=== PATIENT | male | born 1975 | race Caucasian/White ===

== ENCOUNTER 2018-11-02 08:08 | Inpatient (IN) | payer OTHER ==
--- NOTE | 2018-11-02 10:20 | HP ---
"COWS - Scale Resting Pulse: 0= [place] 80 or Below Sweatin= Chills/Flushing Restless Observation: 3= Extraneous Movement Pupil Size: 0= Normal to Room Light Bone or Joint Aches: 4=Acute Joint/Muscle Pain Runny Nose/ Eye Tearin= Nasal Congestion GI Upset > 30mins: 0= None Tremor Observation: 0= None Yawning Observation: 0= None Anxiety or Irritability: 2=Irritable/Anxious Goose Flesh Skin: 0=Smooth Skin COWS Score: 11 CIWA Score - Admission Criteria OASAS Guidelines: Admission for Medically Managed Detox: Requires at least one of the followin. CIWA greater than 12 2. Seizures within the past 24 hours 3. Delirium tremens within the past 24 hours 4. Hallucinations within the past 24 hours 5. Acute intervention needed for co occurring medical disorder 6. Acute intervention needed for co occurring psychiatric disorder 7. Severe withdrawal that cannot be handled at a lower level of care (continued vomiting, continued diarrhea, abnormal vital signs) requiring intravenous medication and/or fluids 8. Admission ROS [facility] Allergies/Adverse Reactions: Allergies Allergy/AdvReac Type Severity Reaction Status Date / Time shellfish derived Allergy Severe Difficulty Verified 11/02/18 08:35 Breathing No Known Drug Allergies Allergy Unknown Verified 11/02/18 08:35 History of Present Illness: Search Terms: maria fernanda mcgee, 1975 Search Date: 11/02/2018 10:15:40 AM The Drug Utilization Report below displays all of the controlled substance prescriptions, if any, that your patient has filled in the last twelve months. The information displayed on this report is compiled from pharmacy submissions to the Department, and accurately reflects the information as submitted by the pharmacies. This report was requested by: Phylicia Johnson | Reference #: [id number] There are no results for the search terms that you entered. pt here requesting detox from heroin use , reports 10-12 bags heroin IVDU in [place] [facility] , needles from the exchange , denies sharing , + re-using , denies abscess, + OD x 2-3 Narcan by EMS 3 years ago . Denies recent hospital visits. Latest use 4 am today , current symptoms as above . Prior [facility] [place], highest dose 130 mg , left program 2/2 ongoing opiate use cocaine - past IVDU latest use 2 days ago etoh - 2 days ago , 4 x /week 2 pints vodka, reports anxiety if not drinking . cannabis- denies tobacco - / ppd denies other illicits PMHX : hep C dx 2012 no tx ( RF= IVDU ) PSHx : nose frx 1984 psych: denies , denies current Si / hi SHX : lives w/ GF , unemployed , finances habit through odd jobs . Exam Limitations: No Limitations - Ebola screening Have you traveled outside of the country in the last 21 days: No Have you had contact with anyone from an Ebola affected area: No Do you have a fever: No - Review of Systems Constitutional: See HPI EENT: reports: See HPI, Other (denies vision loss, denies dysphagia) Respiratory: reports: No Symptoms reported Cardiac: reports: No Symptoms Reported GI: reports: See HPI : reports: No Symptoms Reported Musculoskeletal: reports: See HPI Integumentary: reports: See HPI Neuro: reports: No Symptoms reported Endocrine: reports: No Symptoms Reported Psychiatric: reports: Orientated x3, Anxious Patient History - Patient Medical History Hx Anemia: No Hx Asthma: No Hx Chronic Obstructive Pulmonary Disease (COPD): No Hx Cancer: No Hx Cardiac Disorders: No Hx Congestive Heart Failure: No Hx Hypertension: No Hx Hypercholesterolemia: No Hx Pacemaker: No HX Cerebrovascular Accident: No Hx Seizures: No Hx Dementia: No Hx Diabetes: No Hx Gastrointestinal Disorders: No Hx Liver Disease: No Hx Genitourinary Disorders: No Hx Sexually Transmitted Disorders: No Hx Renal Disease (ESRD): No Hx Thyroid Disease: No Hx Human Immunodeficiency Virus (HIV): No Hx Hepatitis C: Yes (diagnosed 2011,NEEDS TREATMENT) Hx Depression: Yes Hx Suicide Attempt: No Hx Bipolar Disorder: Yes Hx Schizophrenia: No - Patient Surgical History Past Surgical History: Yes Hx Neurologic Surgery: No Hx Cataract Extraction: No Hx Cardiac Surgery: No Hx Lung Surgery: No Hx Breast Surgery: No Hx Breast Biopsy: No Hx Abdominal Surgery: No Hx Appendectomy: No Hx Cholecystectomy: No Hx Genitourinary Surgery: No Hx Section: No Hx Orthopedic Surgery: No Hx Hysterectomy: No Other Surgical History: fx, nose at age 10 Anesthesia Reaction: No - PPD History Previous Implant?: Yes Documented Results: Negative w/o proof Implanted On Prior R Admission?: Yes Date: 08/03/15 Results: 0mm - Smoking Cessation Smoking history: Current every day smoker Have you smoked in the past 12 months: Yes Aproximately how many cigarettes per day: 5 Hx Chewing Tobacco Use: No Initiated information on smoking cessation: No - Substances abused Alcohol Substance route: Oral Frequency: 3-6 times per week Amount used: 2 pt. vodka, 1 six beer (16 0z) Age of first use: 12 Date of last use: 10/31/18 Cocaine Substance route: Injection Frequency: 3-6 times per week Amount used: 1 gram Age of first use: 21 Date of last use: 10/31/18 Heroin Substance route: Inhalation Frequency: Daily Amount used: 12 bags Age of first use: 17 Date of last use: 11/02/18 Family Disease History - Family Disease History Family Disease History: Diabetes: Grandparent, Other: Father (d. 50 , murdered @ client age 12 ), Mother (alive), Son (2, A & W ) Admission Physical Exam S - Vital Signs Vital Signs: Vital Signs - 24 hr 11/02/18 08:36 Temperature 97.1 F L Pulse Rate 62 Respiratory 18 Rate Blood Pressure 74/45 L - Physical General Appearance: Yes: Mild Distress, Anxious HEENTM: Yes: EOMI, Hearing grossly Normal, Normocephalic, Normal Voice Respiratory: Yes: Chest Non-Tender, Lungs Clear, Normal Breath Sounds Neck: Yes: No masses,lesions,Nodules, Trachea in good position Cardiology: Yes: Regular Rhythm, Regular Rate, S1, S2 Abdominal: Yes: Normal Bowel Sounds, Non Tender, Soft Genitourinary: Yes: Within Normal Limits Back: Yes: Normal Inspection Musculoskeletal: Yes: Gait Steady Extremities: Yes: Normal Range of Motion Neurological: Yes: Alert, Motor Strength 5/5 Integumentary: Yes: Warm - Diagnostic (1) Opioid dependence with withdrawal Current Visit: Yes Status: Acute (2) Nicotine dependence Current Visit: Yes Status: Chronic Qualifiers: Nicotine product type: cigarettes Substance use status: uncomplicated Qualified Code(s): F17.210 - Nicotine dependence, cigarettes, uncomplicated Breathalyzer - Breathalyzer Breathalyzer: 0 Urine Drug Screen - Test Device Lot number: [id number] Expiration date: 06/30/20 - Control Is test valid?: Yes - Results Drug screen NEGATIVE: No Urine drug screen results: FEN-Fentanyl, MOP-Opiates Inpatient Rehab Admission - Rehab Decision to Admit Inpatient rehab admission?: No"
[2018-11-02] MEDS ORDERED: MAGNESIUM HYDROX 2400MG/30ML ORAL SUSPENSION 30 ML CUP PO PRN (10:25)
[2018-11-02] MEDS ORDERED: MAG HYDROX/AL HYDROX/SIMETH 30 ML UNIT-DOSE CUP PO PRN (10:25)
[2018-11-02] MEDS ORDERED: IBUPROFEN 400 MG TABLET (FP) PO PRN (10:25)
[2018-11-02] MEDS ORDERED: MENTHOL/PHENOL 1 EACH UD MM PRN (10:25)
[2018-11-02] MEDS ORDERED: BISMUTH SUBSALICYLATE 262 MG/15 ML BTL PO PRN (10:25)
[2018-11-02] MEDS ORDERED: ACETAMINOPHEN 325 MG TABLET (FP) PO PRN ×2 (10:25)
[2018-11-02] MEDS ORDERED: cloNIDine HCL 0.1 MG TABLET PO PRN (10:25)
[2018-11-02] MEDS ORDERED: MAGNESIUM CITRATE 300 ML BOTTLE PO PRN (10:25)
[2018-11-02] MEDS ORDERED: NICOTINE POLACRILEX 2 MG GUM BUC PRN (10:25)
[2018-11-02] MEDS ORDERED: METHADONE HCL 10 MG TABLET (FOR DETOX USE ONLY) PO ONE (10:50)
[2018-11-02] MEDS: METHOCARBAMOL 500 MG TABLET PO PRN (20:40)
[2018-11-02] MEDS: THIAMINE HCL 100 MG TABLET (FP) PO SCH (23:40)
[2018-11-03] MEDS ORDERED: METHADONE HCL 5 MG TABLET (FOR DETOX USE ONLY) PO ONE (10:00)
[2018-11-03] MEDS: hydrOXYzine PAMOATE 25 MG CAPSULE (FP) PO PRN ×2 (10:06→22:03)
[2018-11-03] MEDS: PRENATAL VITAMINS W/ FOLIC ACID TABLET (FP) PO SCH (10:06)
[2018-11-03 10:23] LABS: HEMATOCRIT 40.1 % (35.4-49); HEMOGLOBIN 13.4 GM/dL (11.7-16.9); MCH 32.3 pg (25.7-33.7); MCHC 33.6 g/dl (32.0-35.9); MEAN CELL VOLUME 96.4 fl (80-96); MEAN PLT VOLUME 10.4 fl (7.5-11.1); PLATELET COUNT 116 K/MM3 (134-434); RBC 4.16 M/mm3 (4.00-5.60); WHITE BLOOD COUNT 5.4 K/mm3 (4.0-10.0)
[2018-11-03 10:34] LABS: ALBUMIN 3.5 g/dl (3.4-5.0); ALK PHOS 53 U/L (45-117); ANION GAP 3 MMOL/L (8-16); BILIRUBIN,TOTAL 0.9 mg/dL (0.2-1); BLOOD UREA NITROGEN 14 mg/dL (7-18); CALCIUM 8.4 mg/dL (8.5-10.1); CHLORIDE 102 mmol/L (98-107); CO2 29 mmol/L (21-32); CREATININE 0.8 mg/dL (0.55-1.3); GLUCOSE,RANDOM 93 mg/dL (74-106); POTASSIUM 4.3 mmol/L (3.5-5.1); SGOT/AST 44 U/L (15-37); SGPT/ALT 49 U/L (13-61); SODIUM 134 mmol/L (136-145); TOT PROT 6.8 g/dl (6.4-8.2)
--- NOTE | 2018-11-03 16:29 | PN ---
BHS COWS - Scale Resting Pulse: 0= [place] 80 or Below Sweatin= Chills/Flushing Restless Observation: 1= Difficult to Sit Still Pupil Size: 0= Normal to Room Light Bone or Joint Aches: 0= None Runny Nose/ Eye Tearin= Runny Nose/Eyes GI Upset > 30mins: 0= None Tremor Observation of Outstretched Hands: 2= Slight Tremor Visible Yawning Observation: 1= 1-2x During Session Anxiety or Irritability: 2=Irritable/Anxious Goose Flesh Skin: 3=Piloerection COWS Score: 12 BHS Progress Note (SOAP) Subjective: Interrupted Sleep, Fatigue, Tremors. Objective: PATIENT A & O X 3, OBSERVED AMBULATING ON UNIT. IN NO ACUTE DISTRESS. 11/03/18 16:30 Vital Signs Temperature 97.7 F 11/03/18 14:18 Pulse Rate 62 11/03/18 14:18 Respiratory Rate 18 11/03/18 14:18 Blood Pressure 117/66 11/03/18 14:18 O2 Sat by Pulse Oximetry (%) Laboratory Tests 11/03/18 11/03/18 11/03/18 07:00 07:00 07:00 WBC 5.4 RBC 4.16 Hgb 13.4 Hct 40.1 MCV 96.4 H MCH 32.3 MCHC 33.6 RDW 13.0 Plt Count 116 L D MPV 10.4 Sodium 134 L Potassium 4.3 Chloride 102 Carbon Dioxide 29 Anion Gap 3 L BUN 14 Creatinine 0.8 Creat Clearance w eGFR 105.01 Random Glucose 93 Calcium 8.4 L Total Bilirubin 0.9 AST 44 H ALT 49 Alkaline Phosphatase 53 Total Protein 6.8 Albumin 3.5 RPR Titer Nonreactive LABS NOTED. Assessment: 11/03/18 16:31 WITHDRAWAL SYMPTOMS. THROMBOCYTOPENIA. 11/03/18 16:31 Plan: CONTINUE DETOX.
[2018-11-03] MEDS: MELATONIN 5 MG TABLETS PO PRN (22:03)
[2018-11-03] MEDS: THIAMINE HCL 100 MG TABLET (FP) PO SCH (22:03)
[2018-11-03] MEDS: METHOCARBAMOL 500 MG TABLET PO PRN (22:03)
[2018-11-04] MEDS ORDERED: METHADONE HCL 10 MG TABLET (FOR DETOX USE ONLY) PO ONE (10:00)
[2018-11-04] MEDS: PRENATAL VITAMINS W/ FOLIC ACID TABLET (FP) PO SCH (10:20)
--- NOTE | 2018-11-04 15:20 | PN ---
BHS COWS - Scale Resting Pulse: 0= [place] 80 or Below Sweatin= No chills or Flushing Restless Observation: 0= Sits Still Pupil Size: 0= Normal to Room Light Bone or Joint Aches: 0= None Runny Nose/ Eye Tearin= Nasal Congestion GI Upset > 30mins: 0= None Tremor Observation of Outstretched Hands: 2= Slight Tremor Visible Yawning Observation: 2= >3x During Session Anxiety or Irritability: 2=Irritable/Anxious Goose Flesh Skin: 3=Piloerection COWS Score: 10 BHS Progress Note (SOAP) Subjective: Interrupted Sleep, Fatigue, Tremors. Objective: PATIENT A & O X 3, OBSERVED AMBULATING ON UNIT. IN NO ACUTE DISTRESS. 11/04/18 15:17 Vital Signs Temperature 97.4 F L 11/04/18 13:29 Pulse Rate 66 11/04/18 13:29 Respiratory Rate 18 11/04/18 13:29 Blood Pressure 128/75 11/04/18 13:29 O2 Sat by Pulse Oximetry (%) Laboratory Tests 11/03/18 11/03/18 11/03/18 07:00 07:00 07:00 WBC 5.4 RBC 4.16 Hgb 13.4 Hct 40.1 MCV 96.4 H MCH 32.3 MCHC 33.6 RDW 13.0 Plt Count 116 L D MPV 10.4 Sodium 134 L Potassium 4.3 Chloride 102 Carbon Dioxide 29 Anion Gap 3 L BUN 14 Creatinine 0.8 Creat Clearance w eGFR 105.01 Random Glucose 93 Calcium 8.4 L Total Bilirubin 0.9 AST 44 H ALT 49 Alkaline Phosphatase 53 Total Protein 6.8 Albumin 3.5 RPR Titer Nonreactive LABS NOTED. Assessment: 11/04/18 15:17 WITHDRAWAL SYMPTOMS. THROMBOCYTOPENIA. 11/04/18 15:20 Plan: CONTINUE DETOX. DUE TO CONCERNS ABOUT PATIENT SAFETY AND POTENTIAL FOR RELAPSE, PATIENT PERMITTED TO REMAIN ON DETOX UNIT UNTIL 11/06/2018, AT WHICH TIME HE WILL LIKELY BE DISCHARGED TO GO DIRECTLY TO REHAB FACILITY.
[2018-11-04] MEDS: hydrOXYzine PAMOATE 25 MG CAPSULE (FP) PO PRN (22:15)
[2018-11-04] MEDS: MELATONIN 5 MG TABLETS PO PRN (22:15)
[2018-11-04] MEDS: METHOCARBAMOL 500 MG TABLET PO PRN (22:17)
[2018-11-04] MEDS: THIAMINE HCL 100 MG TABLET (FP) PO SCH (22:19)
[2018-11-05] MEDS ORDERED: METHADONE HCL 5 MG TABLET (FOR DETOX USE ONLY) PO ONE (06:00)
[2018-11-05] MEDS: PRENATAL VITAMINS W/ FOLIC ACID TABLET (FP) PO SCH (10:23)
--- NOTE | 2018-11-05 11:20 | DS ---
[facility] Detox Discharge Summary Admission Date: 11/02/18 Discharge Date: 11/05/18 - History Present History: Opioid Dependence Additional Comments: 43 years old male admitted on 11/02/18 for opiate withdrawal stabilization [facility] - Physical Exam Results Vital Signs: Vital Signs Temperature 98.1 F 11/05/18 09:50 Pulse Rate 52 L 11/05/18 09:50 Respiratory Rate 18 11/05/18 09:50 Blood Pressure 121/65 11/05/18 09:50 O2 Sat by Pulse Oximetry (%) Pertinent Admission Physical Exam Findings: opiate withdrawal sx Laboratory Last Values WBC 5.4 K/mm3 (4.0-10.0) 11/03/18 07:00 RBC 4.16 M/mm3 (4.00-5.60) 11/03/18 07:00 Hgb 13.4 GM/dL (11.7-16.9) 11/03/18 07:00 Hct 40.1 % (35.4-49) 11/03/18 07:00 MCV 96.4 fl (80-96) H 11/03/18 07:00 MCH 32.3 pg (25.7-33.7) 11/03/18 07:00 MCHC 33.6 g/dl (32.0-35.9) 11/03/18 07:00 RDW 13.0 % (11.9-15.9) 11/03/18 07:00 Plt Count 116 K/MM3 (134-434) L D 11/03/18 07:00 MPV 10.4 fl (7.5-11.1) 11/03/18 07:00 Sodium 134 mmol/L (136-145) L 11/03/18 07:00 Potassium 4.3 mmol/L (3.5-5.1) 11/03/18 07:00 Chloride 102 mmol/L (98-107) 11/03/18 07:00 Carbon Dioxide 29 mmol/L (21-32) 11/03/18 07:00 Anion Gap 3 MMOL/L (8-16) L 11/03/18 07:00 BUN 14 mg/dL (7-18) 11/03/18 07:00 Creatinine 0.8 mg/dL (0.55-1.3) 11/03/18 07:00 Creat Clearance w eGFR 105.01 (>60) 11/03/18 07:00 Random Glucose 93 mg/dL (74-106) 11/03/18 07:00 Calcium 8.4 mg/dL (8.5-10.1) L 11/03/18 07:00 Total Bilirubin 0.9 mg/dL (0.2-1) 11/03/18 07:00 AST 44 U/L (15-37) H 11/03/18 07:00 ALT 49 U/L (13-61) 11/03/18 07:00 Alkaline Phosphatase 53 U/L (45-117) 11/03/18 07:00 Total Protein 6.8 g/dl (6.4-8.2) 11/03/18 07:00 Albumin 3.5 g/dl (3.4-5.0) 11/03/18 07:00 RPR Titer Nonreactive (NONREACTIVE) 11/03/18 07:00 lab noted - Treatment Hospital Course: Detox Protocol Followed, Detoxed Safely, Responded well, Discharged Condition Good, Rehab Referral Accepted Patient has Accepted a Rehab Referral to: [facility] - Medication Discharge Medications: Ambulatory Orders NK [No Known Home Medication] 08/01/15 - Diagnosis (1) Hepatitis C Current Visit: Yes Status: Chronic Qualifiers: Viral hepatitis chronicity: chronic Hepatic coma status: without hepatic coma Qualified Code(s): B18.2 - Chronic viral hepatitis C (2) Nicotine dependence Current Visit: Yes Status: Acute Qualifiers: Nicotine product type: cigarettes Substance use status: in withdrawal Qualified Code(s): F17.213 - Nicotine dependence, cigarettes, with withdrawal (3) Opioid dependence with withdrawal Current Visit: Yes Status: Acute - AMA Did Patient Leave Against Medical Advice: No
--- NOTE | 2018-11-05 14:07 | PN ---
[facility] Progress Note Note: received nurse reported that weekend counselor human resources department supervisor confirmed that the patient stay over one more day due to insurance granted one more day change discharge date to tomorrow 11/06/18
[2018-11-05 21:36] VITALS: PULSE 73
[2018-11-05] MEDS: MELATONIN 5 MG TABLETS PO PRN (22:02)
[2018-11-05] MEDS: hydrOXYzine PAMOATE 25 MG CAPSULE (FP) PO PRN (22:02)
[2018-11-05] MEDS: THIAMINE HCL 100 MG TABLET (FP) PO SCH (22:03)
[2018-11-05] MEDS: METHOCARBAMOL 500 MG TABLET PO PRN (22:04)
[2018-11-06 06:47] VITALS: BP 126/76; TEMP 97.1
--- NOTE | 2018-11-06 15:22 | DS ---
[facility] Detox Discharge Summary Admission Date: 11/02/18 Discharge Date: 11/06/18 - History Present History: Opioid Dependence Additional Comments: see discharge 11/05/18 Pertinent Past History: patient refuses to go to [facility] recommend 12 step community self help - Physical Exam Results Vital Signs: Vital Signs Temperature 97.1 F L 11/06/18 06:46 Pulse Rate 73 11/06/18 06:46 Respiratory Rate 20 11/06/18 06:46 Blood Pressure 126/76 11/06/18 06:46 O2 Sat by Pulse Oximetry (%) - Treatment Hospital Course: Detox Protocol Followed, Detoxed Safely, Responded well, Discharged Condition Good, Rehab Referral Accepted Patient has Accepted a Rehab Referral to: [facility] - Medication Discharge Medications: Ambulatory Orders NK [No Known Home Medication] 08/01/15 - Diagnosis (1) Hepatitis C Status: Chronic Qualifiers: Viral hepatitis chronicity: chronic Hepatic coma status: without hepatic coma Qualified Code(s): B18.2 - Chronic viral hepatitis C (2) Nicotine dependence Status: Acute Qualifiers: Nicotine product type: cigarettes Substance use status: in withdrawal Qualified Code(s): F17.213 - Nicotine dependence, cigarettes, with withdrawal (3) Opioid dependence with withdrawal Status: Acute - AMA Did Patient Leave Against Medical Advice: No
== END 2018-11-06 08:25 | disposition home or self-care (01) | DRG 773 ==
LOC: YASAS 08:08 → Y3N 10:31
PROVIDERS: ADMIT Surgery; ATTEND Surgery
PROC: HZ2ZZZZ Detoxification Services for Substance Abuse Treatment (ICD-10-PCS; principal; 2018-11-02)
DX: F11.23 Opioid dependence with withdrawal (principal); F17.213 Nicotine dependence, cigarettes, with withdrawal; B18.2 Chronic viral hepatitis C; D69.6 Thrombocytopenia, unspecified; Z91.013 Allergy to seafood
CPT/HCPCS: 36415; 80053; 85027; 86593

== ENCOUNTER 2018-12-08 16:22 | Inpatient (IN) | payer OTHER ==
[2018-12-08 18:08] VITALS: BMI 30.7
--- NOTE | 2018-12-08 19:14 | HP ---
COWS - Scale Resting Pulse: 0= [place] 80 or Below Sweatin= Chills/Flushing Restless Observation: 0= Sits Still Pupil Size: 0= Normal to Room Light Bone or Joint Aches: 4=Acute Joint/Muscle Pain Runny Nose/ Eye Tearin= Runny Nose/Eyes GI Upset > 30mins: 2= Nausea/Diarrhea Tremor Observation: 2= Slight Tremor Visible Yawning Observation: 0= None Anxiety or Irritability: 2=Irritable/Anxious Goose Flesh Skin: 0=Smooth Skin COWS Score: 13 CIWA Score Nausea/Vomitin-Mild Nausea/No Vomiting Muscle Tremors: 4-Moderate,w/Arms Extend Anxiety: 4-Mod. Anxious/Guarded Agitation: 0-Normal Activity Paroxysmal Sweats: 2 Orientation: 0-Oriented Tacttile Disturbances: 0-None Auditory Disturbances: 2-Mild Harshness/Frighten Visual Disturbances: 2-Mild Sensitivity Headache: 0-None Present CIWA-Ar Total Score: 15 - Admission Criteria OASAS Guidelines: Admission for Medically Managed Detox: Requires at least one of the followin. CIWA greater than 12 2. Seizures within the past 24 hours 3. Delirium tremens within the past 24 hours 4. Hallucinations within the past 24 hours 5. Acute intervention needed for co occurring medical disorder 6. Acute intervention needed for co occurring psychiatric disorder 7. Severe withdrawal that cannot be handled at a lower level of care (continued vomiting, continued diarrhea, abnormal vital signs) requiring intravenous medication and/or fluids 8. Admission ROS [facility] Allergies/Adverse Reactions: Allergies Allergy/AdvReac Type Severity Reaction Status Date / Time shellfish derived Allergy Severe Difficulty Verified 12/08/18 18:03 Breathing No Known Drug Allergies Allergy Unknown Verified 12/08/18 18:03 History of Present Illness: pt here requesting detox from heroin use , reports 15-20 bags heroin IVDU in [place] [facility] , needles from the exchange , denies sharing , + re-using , denies abscess, + OD x 2-3 Narcan by EMS 3 years ago. Denies recent hospital visits. Latest use around 4am today , current symptoms as above . Prior [facility]MTP [facility] [place], highest dose 130 mg , left program 2/2 ongoing opiate use cocaine - 20 $ IVDU latest use yesterday etoh -latest use was 3 days ago , 2-3 /week 2 pints vodka, reports anxiety if not drinking , denies seizures or blackouts , denies tremors . cannabis- denies tobacco - / ppd denies other illicits PMHX : hep C dx 2012 no tx ( RF= IVDU ) PSHx : nose frx 1984 psych: denies , denies current Si / hi SHX : lives w/ GF , unemployed , finances habit through odd jobs, denies legal issues Exam Limitations: Clinical Condition, Intoxication - Ebola screening Have you traveled outside of the country in the last 21 days: No (N) Have you had contact with anyone from an Ebola affected area: No Do you have a fever: No - Review of Systems Constitutional: See HPI EENT: reports: See HPI Respiratory: reports: No Symptoms reported Cardiac: reports: No Symptoms Reported GI: reports: See HPI : reports: No Symptoms Reported Musculoskeletal: reports: See HPI Integumentary: reports: No Symptoms Reported, Other (IVDU) Neuro: reports: See HPI, Headache Endocrine: reports: No Symptoms Reported Psychiatric: reports: Orientated x3, Anxious Patient History - Patient Medical History Hx Anemia: No Hx Asthma: No Hx Chronic Obstructive Pulmonary Disease (COPD): No Hx Cancer: No Hx Cardiac Disorders: No Hx Congestive Heart Failure: No Hx Hypertension: No Hx Hypercholesterolemia: No Hx Pacemaker: No HX Cerebrovascular Accident: No Hx Seizures: No Hx Dementia: No Hx Diabetes: No Hx Gastrointestinal Disorders: No Hx Liver Disease: No Hx Genitourinary Disorders: No Hx Sexually Transmitted Disorders: No Hx Renal Disease (ESRD): No Hx Thyroid Disease: No Hx Human Immunodeficiency Virus (HIV): No Hx Hepatitis C: Yes (diagnosed 2011,NEEDS TREATMENT) Hx Depression: Yes Hx Suicide Attempt: No Hx Bipolar Disorder: Yes Hx Schizophrenia: No - Patient Surgical History Past Surgical History: Yes Hx Neurologic Surgery: No Hx Cataract Extraction: No Hx Cardiac Surgery: No Hx Lung Surgery: No Hx Breast Surgery: No Hx Breast Biopsy: No Hx Abdominal Surgery: No Hx Appendectomy: No Hx Cholecystectomy: No Hx Genitourinary Surgery: No Hx Section: No Hx Orthopedic Surgery: No Hx Hysterectomy: No Other Surgical History: fx, nose at age 10 Anesthesia Reaction: No - PPD History Date: 11/04/18 Results: 0mm - Smoking Cessation Smoking history: Current every day smoker Have you smoked in the past 12 months: Yes Aproximately how many cigarettes per day: 5 Hx Chewing Tobacco Use: No Initiated information on smoking cessation: No - Substances abused Alcohol Substance route: Oral Frequency: 3-6 times per week Amount used: 2 pt. vodka, 1 six beer (16 0z) Age of first use: 12 Date of last use: 12/07/18 Cocaine Substance route: Injection Frequency: 3-6 times per week Amount used: 1 gram Age of first use: 21 Date of last use: 12/07/18 Heroin Substance route: Inhalation Frequency: Daily Amount used: 12 bags Age of first use: 17 Date of last use: 12/08/18 Family Disease History - Family Disease History Family Disease History: Diabetes: Grandparent, Other: Father (d. 50 , murdered @ client age 12 ), Mother (alive), Son (2, A & W ) Admission Physical Exam S - Vital Signs Vital Signs: Vital Signs - 24 hr 12/08/18 12/08/18 18:02 18:40 Temperature 98.4 F 98.4 F Pulse Rate 58 L 58 L Respiratory 18 18 Rate Blood Pressure 121/62 121/62 - Physical General Appearance: Yes: Moderate Distress HEENTM: Yes: EOMI, Normocephalic, Normal Voice Respiratory: Yes: Chest Non-Tender, Lungs Clear, Normal Breath Sounds, No Respiratory Distress, No Accessory Muscle Use Neck: Yes: No masses,lesions,Nodules, Trachea in good position Cardiology: Yes: Regular Rhythm, Regular Rate, S1, S2 Abdominal: Yes: Non Tender, Soft Back: Yes: Normal Inspection Musculoskeletal: Yes: Gait Steady, Muscle Pain Extremities: Yes: Normal Range of Motion, Non-Tender, Tremors, Pedal Edema Neurological: Yes: Motor Strength 5/5, Depressed Affect Integumentary: Yes: Warm, Erythema (LE L > R), Track [place] ([place] [facility] no abscess) - Diagnostic (1) Alcohol dependence with uncomplicated withdrawal Current Visit: Yes Status: Acute (2) Nicotine dependence Current Visit: Yes Status: Chronic Qualifiers: Nicotine product type: cigarettes (3) Opioid dependence with withdrawal Current Visit: Yes Status: Acute (4) Cocaine dependence Current Visit: Yes Status: Chronic Breathalyzer - Breathalyzer Breathalyzer: 0 Urine Drug Screen - Test Device Lot number: [id number] Expiration date: 06/30/19 - Control Is test valid?: Yes - Results Drug screen NEGATIVE: No Urine drug screen results: DORCAS-Cocaine, FEN-Fentanyl, MOP-Opiates, OXY-Oxycodone , BZO-Benzodiazepines Inpatient Rehab Admission - Rehab Decision to Admit Inpatient rehab admission?: No
[2018-12-08] MEDS ORDERED: NICOTINE POLACRILEX 2 MG GUM BUC PRN (19:35)
[2018-12-08] MEDS ORDERED: MELATONIN 5 MG TABLETS PO PRN (19:35)
[2018-12-08] MEDS ORDERED: ACETAMINOPHEN 325 MG TABLET (FP) PO PRN ×2 (19:35)
[2018-12-08] MEDS ORDERED: MAGNESIUM CITRATE 300 ML BOTTLE PO PRN (19:35)
[2018-12-08] MEDS ORDERED: MAG HYDROX/AL HYDROX/SIMETH 30 ML UNIT-DOSE CUP PO PRN (19:35)
[2018-12-08] MEDS ORDERED: cloNIDine HCL 0.1 MG TABLET PO PRN (19:35)
[2018-12-08] MEDS ORDERED: IBUPROFEN 400 MG TABLET (FP) PO PRN (19:35)
[2018-12-08] MEDS ORDERED: METHOCARBAMOL 500 MG TABLET PO PRN (19:35)
[2018-12-08] MEDS ORDERED: MAGNESIUM HYDROX 2400MG/30ML ORAL SUSPENSION 30 ML CUP PO PRN (19:35)
[2018-12-08] MEDS ORDERED: diazePAM 5 MG TABLET PO PRN (19:35)
[2018-12-08] MEDS ORDERED: BISMUTH SUBSALICYLATE 524 MG/30 ML UD PO PRN (19:35)
[2018-12-08] MEDS ORDERED: MENTHOL/PHENOL 1 EACH UD MM PRN (19:35)
[2018-12-08] MEDS: diazePAM 5 MG TABLET PO SCH (21:07)
[2018-12-08] MEDS ORDERED: THIAMINE HCL 100 MG TABLET (FP) PO SCH (22:00)
[2018-12-08] MEDS ORDERED: METHADONE HCL 10 MG TABLET (FOR DETOX USE ONLY) PO ONE (23:00)
[2018-12-09] MEDS: diazePAM 5 MG TABLET PO SCH (06:17)
[2018-12-09 09:54] VITALS: BP 122/66; PULSE 55; TEMP 98.1
[2018-12-09] MEDS ORDERED: METHADONE HCL 10 MG TABLET (FOR DETOX USE ONLY) PO ONE (10:00)
[2018-12-09] MEDS ORDERED: PRENATAL VITAMINS W/ FOLIC ACID TABLET (FP) PO SCH (10:00)
--- NOTE | 2018-12-09 11:28 | PN ---
S CIWA - CIWA Score Nausea/Vomitin-No Nausea/No Vomiting Muscle Tremors: 3 Anxiety: 2 Agitation: 2 Paroxysmal Sweats: 4-Forehead w/Sweat Beads Orientation: 0-Oriented Tacttile Disturbances: 0-None Auditory Disturbances: 0-None Visual Disturbances: 0-None Headache: 2-Mild CIWA-Ar Total Score: 13 BHS COWS - Scale Resting Pulse: 0= [place] 80 or Below Sweatin= Chills/Flushing Restless Observation: 1= Difficult to Sit Still Pupil Size: 0= Normal to Room Light Bone or Joint Aches: 4=Acute Joint/Muscle Pain Runny Nose/ Eye Tearin= None GI Upset > 30mins: 0= None Tremor Observation of Outstretched Hands: 2= Slight Tremor Visible Yawning Observation: 1= 1-2x During Session Anxiety or Irritability: 2=Irritable/Anxious Goose Flesh Skin: 0=Smooth Skin COWS Score: 11 BHS Progress Note (SOAP) Subjective: c/o anxiety, sweats, irritability, body aches, tremor, and headache. Objective: 12/09/18 11:26 Vital Signs 12/09/18 12/09/18 12/09/18 03:30 08:07 09:54 Temperature 96.4 F L 98.1 F Pulse Rate 64 55 L Respiratory 18 18 18 Rate Blood Pressure 130/64 122/66 Assessment: 12/09/18 11:26 AOX3, in no distress Full ROM, ambulating in the unit Withdrawal symptoms persists. Plan: continue detox.
[2018-12-09 11:36] LABS: HEMATOCRIT 39.1 % (35.4-49); HEMOGLOBIN 13.3 GM/dL (11.7-16.9); MCH 32.3 pg (25.7-33.7); MEAN CELL VOLUME 94.9 fl (80-96); MEAN PLT VOLUME 9.1 fl (7.5-11.1); PLATELET COUNT 169 K/MM3 (134-434); RBC 4.12 M/mm3 (4.00-5.60); RDW 12.3 % (11.9-15.9); WHITE BLOOD COUNT 4.7 K/mm3 (4.0-10.0)
[2018-12-09 11:52] LABS: ALBUMIN 3.5 g/dl (3.4-5.0); BILIRUBIN,TOTAL 1.1 mg/dL (0.2-1); CALCIUM 8.8 mg/dL (8.5-10.1); CREATININE 0.9 mg/dL (0.55-1.3); POTASSIUM 4.1 mmol/L (3.5-5.1); TOT PROT 7.2 g/dl (6.4-8.2)
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
[2018-12-10] MEDS ORDERED: diazePAM 5 MG TABLET PO SCH (10:00)
[2018-12-10] MEDS ORDERED: METHADONE HCL 10 MG TABLET (FOR DETOX USE ONLY) PO ONE (10:00)
--- NOTE | 2018-12-10 12:26 | EKG ---
Test Reason : Blood Pressure : / mmHG Vent. Rate : 070 BPM Atrial Rate : 070 BPM P-R Int : 150 ms QRS Dur : 098 ms QT Int : 436 ms P-R-T Axes : 053 019 043 degrees QTc Int : 470 ms NORMAL SINUS RHYTHM NORMAL ECG NO PREVIOUS ECGS AVAILABLE Confirmed by DANICA SALINAS MD ([id number]) on 12/10/2018 12:25:56 PM Referred By: Confirmed By:DANICA SALINAS MD
[2018-12-11] MEDS ORDERED: diazePAM 5 MG TABLET PO SCH (06:00)
[2018-12-11] MEDS ORDERED: METHADONE HCL 10 MG TABLET (FOR DETOX USE ONLY) PO ONE (10:00)
[2018-12-12] MEDS ORDERED: METHADONE HCL 5 MG TABLET (FOR DETOX USE ONLY) PO ONE (06:00)
== END 2018-12-09 12:53 | disposition left against medical advice (07) | DRG 770 ==
LOC: YASAS 16:22 → Y6N 20:03
PROVIDERS: ADMIT Surgery; ATTEND Surgery
PROC: HZ2ZZZZ Detoxification Services for Substance Abuse Treatment (ICD-10-PCS; principal; 2018-12-08)
DX: F11.23 Opioid dependence with withdrawal (principal); F10.230 Alcohol dependence with withdrawal, uncomplicated; F14.20 Cocaine dependence, uncomplicated; F17.210 Nicotine dependence, cigarettes, uncomplicated; B18.2 Chronic viral hepatitis C; Z91.013 Allergy to seafood
CPT/HCPCS: 36415; 80053; 85027; 86593; 93005; 93010

== ENCOUNTER 2019-01-27 08:52 | Inpatient (IN) | payer OTHER ==
--- NOTE | 2019-01-27 10:41 | HP ---
COWS - Scale Resting Pulse: 1= [place] 81-100 Sweatin= Chills/Flushing Restless Observation: 0= Sits Still Pupil Size: 0= Normal to Room Light Bone or Joint Aches: 1= Mild Discomfort Runny Nose/ Eye Tearin= Nasal Congestion GI Upset > 30mins: 2= Nausea/Diarrhea Tremor Observation: 1= Tremor [place], Not Seen Yawning Observation: 1= 1-2x During Session Anxiety or Irritability: 1=Feels Anxious/Irritable Goose Flesh Skin: 0=Smooth Skin COWS Score: 9 CIWA Score - Admission Criteria OASAS Guidelines: Admission for Medically Managed Detox: Requires at least one of the followin. CIWA greater than 12 2. Seizures within the past 24 hours 3. Delirium tremens within the past 24 hours 4. Hallucinations within the past 24 hours 5. Acute intervention needed for co occurring medical disorder 6. Acute intervention needed for co occurring psychiatric disorder 7. Severe withdrawal that cannot be handled at a lower level of care (continued vomiting, continued diarrhea, abnormal vital signs) requiring intravenous medication and/or fluids 8. Admission ROS S - HPI Chief Complaint: I'm tired, I want to get my life back, I basically overdosed last night but I woke up and got scared - I want help. Allergies/Adverse Reactions: Allergies Allergy/AdvReac Type Severity Reaction Status Date / Time shellfish derived Allergy Severe Difficulty Verified 01/27/19 09:49 Breathing No Known Drug Allergies Allergy Unknown Verified 12/08/18 18:03 History of Present Illness: 43 yo gentleman here for detox from opiates. Lasthere 12/08 but only stayed one day - "I got anxious" - previously here several times. History of MMTP at [facility] but went off it. Never tried Vivitrol or suboxone program. States he has overdosed several times. Urine tox + benzo, mtd and oxy but denies separate use of these - thinks mixed with heroin. Did use street methadone but believes it was a month ago. Denies seizures but does have black outs. Denies drinking alcohol regularly - none x 1 week. Currently not working, lost his job due to using, now living with a cousin. Patient states he had an infection in his left shoulder and was seen at [facility] - a CT was done - he was put on antibiotics which has ten more days to go - he now has full ROM in that arm which he did not have prior to treatment and he will follow up there. Exam Limitations: No Limitations - Ebola screening Have you traveled outside of the country in the last 21 days: No (N) Have you had contact with anyone from an Ebola affected area: No Do you have a fever: No - Review of Systems Constitutional: Changes in sleep, Weakness EENT: reports: Nose Congestion Respiratory: reports: No Symptoms reported Cardiac: reports: No Symptoms Reported GI: reports: Indigestion, Abdominal cramping : reports: No Symptoms Reported Musculoskeletal: reports: Back Pain, Muscle Pain Integumentary: reports: No Symptoms Reported Neuro: reports: Headache, Tremors Endocrine: reports: No Symptoms Reported Hematology: reports: No Symptoms Reported Psychiatric: reports: Mood/Affect Appropiate, Orientated x3, Anxious Other Systems: Reviewed and Negative Patient History - Patient Medical History Hx Anemia: No Hx Asthma: No Hx Chronic Obstructive Pulmonary Disease (COPD): No Hx Cancer: No Hx Cardiac Disorders: No Hx Congestive Heart Failure: No Hx Hypertension: Yes (one meds) Hx Hypercholesterolemia: No Hx Pacemaker: No HX Cerebrovascular Accident: No Hx Seizures: No Hx Dementia: No Hx Diabetes: No Hx Gastrointestinal Disorders: No Hx Liver Disease: Yes (?cirrhosis, hep C) Hx Genitourinary Disorders: No Hx Sexually Transmitted Disorders: No Hx Renal Disease (ESRD): No Hx Thyroid Disease: No Hx Human Immunodeficiency Virus (HIV): No Hx Hepatitis C: Yes (diagnosed 2011,never treated) Hx Depression: Yes (hx meds in past - PTSD - never hospitalized) Hx Suicide Attempt: No Hx Bipolar Disorder: Yes (not sure) Hx Schizophrenia: No Other Medical History: left shoulder infection - Patient Surgical History Past Surgical History: Yes Hx Neurologic Surgery: No Hx Cataract Extraction: No Hx Cardiac Surgery: No Hx Lung Surgery: No Hx Breast Surgery: No Hx Breast Biopsy: No Hx Abdominal Surgery: No Hx Appendectomy: No Hx Cholecystectomy: No Hx Genitourinary Surgery: No Hx Section: No Hx Orthopedic Surgery: No Hx Hysterectomy: No Other Surgical History: fx, nose at age 10 Anesthesia Reaction: No - PPD History Previous Implant?: Yes Documented Results: Negative w/proof Implanted On Prior [facility] Admission?: Yes Date: 11/04/18 Results: 0mm PPD to be Administered?: No - Reproductive History Patient is a Female of Child Bearing Age (11 -55 yrs old): No - Smoking Cessation Smoking history: Current every day smoker Have you smoked in the past 12 months: Yes Aproximately how many cigarettes per day: 5 Hx Chewing Tobacco Use: No Initiated information on smoking cessation: Yes 'Breaking Loose' booklet given: 01/27/19 (give on floor) - Substance & Tx. History Hx Alcohol Use: Yes (none x 1 week) Hx Substance Use: Yes Substance Use Type: Alcohol, Cocaine, Heroin, Marijuana Hx Substance Use Treatment: Yes (detox, MMTP, ) - Substances abused Alcohol Substance route: Oral Frequency: 1-2 times per week Amount used: 2 pt. vodka, 1 six beer (16 0z) Age of first use: 12 Date of last use: 01/19/19 Cocaine Substance route: Inhalation Frequency: 1-2 times per week Amount used: 1 gram Age of first use: 22 Date of last use: 01/26/19 Heroin Substance route: Inhalation Frequency: Daily Amount used: 15-18 bags Age of first use: 22 Date of last use: 01/26/19 Marijuana/Hashish Substance route: Smoking Frequency: 1-2 times per week Amount used: 1 blunt Age of first use: 14 Date of last use: 01/25/19 Family Disease History - Family Disease History Family Disease History: Diabetes: Grandparent, Father (d. 50 , murdered @ client age 12 ), Other: Father, Mother (living - healthy), Sister (two - living - healthy), Son (two ages 21 and 19, healthy) Admission Physical Exam [facility] - Vital Signs Vital Signs: Vital Signs - 24 hr 01/27/19 10:03 Temperature 97.2 F L Pulse Rate 90 Respiratory 18 Rate Blood Pressure 147/86 - Physical General Appearance: Yes: Nourished, Appropriately Dressed, Moderate Distress, Tremorous, Anxious HEENTM: Yes: EOMI, Hearing grossly Normal, Normocephalic, Normal Voice, Pharynx Normal, Other (nose with chronic deformity due to history of fracture) Respiratory: Yes: Normal Breath Sounds, No Respiratory Distress Neck: Yes: No masses,lesions,Nodules Breast: Yes: Breast Exam Deferred Cardiology: Yes: Regular Rhythm, Regular Rate Abdominal: Yes: Soft Genitourinary: Yes: Within Normal Limits Back: Yes: Normal Inspection Musculoskeletal: Yes: full range of Motion, Gait Steady, Back pain Extremities: Yes: Normal Inspection, Normal Range of Motion Neurological: Yes: Fully Oriented, Alert, Normal Mood/Affect, Normal Response Integumentary: Yes: Normal Color, Warm Lymphatic: Yes: Within Normal Limits - Diagnostic (1) Opioid dependence with withdrawal Current Visit: Yes Status: Chronic (2) Cocaine dependence Current Visit: Yes Status: Chronic (3) HTN (hypertension) Current Visit: Yes Status: Chronic Qualifiers: Hypertension type: essential hypertension Qualified Code(s): I10 - Essential (primary) hypertension (4) Infection of shoulder Current Visit: Yes Status: Chronic Comment: on ceftin - seeing ortho at [facility] - patient does not think it was a bone infection but unsure (5) Hepatitis C Current Visit: Yes Status: Chronic Qualifiers: Viral hepatitis chronicity: chronic Hepatic coma status: without hepatic coma Qualified Code(s): B18.2 - Chronic viral hepatitis C Comment: never treated history of elevated LFTs (6) Nicotine dependence Current Visit: Yes Status: Chronic Qualifiers: Nicotine product type: cigarettes Substance use status: uncomplicated Qualified Code(s): F17.210 - Nicotine dependence, cigarettes, uncomplicated Cleared for Admission S - Detox or Rehab [facility] Level of Care: Medically Managed Detox Regimen/Protocol: Methadone Breathalyzer - Breathalyzer Breathalyzer: 0 Urine Drug Screen - Test Device Lot number: [id number] Expiration date: 09/28/20 - Control Is test valid?: Yes - Results Drug screen NEGATIVE: No Urine drug screen results: THC-Marijuana, DORCAS-Cocaine, FEN-Fentanyl, MOP-Opiates , OXY-Oxycodone, BZO-Benzodiazepines Inpatient Rehab Admission - Rehab Decision to Admit Inpatient rehab admission?: No
[2019-01-27] MEDS ORDERED: METHOCARBAMOL 500 MG TABLET PO PRN (10:58)
[2019-01-27] MEDS ORDERED: MAGNESIUM HYDROX 2400MG/30ML ORAL SUSPENSION 30 ML CUP PO PRN (10:58)
[2019-01-27] MEDS ORDERED: cloNIDine HCL 0.1 MG TABLET PO PRN (10:58)
[2019-01-27] MEDS ORDERED: IBUPROFEN 400 MG TABLET (FP) PO PRN (10:58)
[2019-01-27] MEDS ORDERED: BISMUTH SUBSALICYLATE 524 MG/30 ML UD PO PRN (10:58)
[2019-01-27] MEDS ORDERED: MAG HYDROX/AL HYDROX/SIMETH 30 ML UNIT-DOSE CUP PO PRN (10:58)
[2019-01-27] MEDS ORDERED: MAGNESIUM CITRATE 300 ML BOTTLE PO PRN (10:58)
[2019-01-27] MEDS ORDERED: MENTHOL/PHENOL 1 EACH UD MM PRN (10:58)
[2019-01-27] MEDS ORDERED: METHADONE HCL 10 MG TABLET (FOR DETOX USE ONLY) PO ONE ×2 (11:05→23:00)
[2019-01-27] MEDS: CEFUROXIME AXETIL 500 MG TABLET PO SCH ×2 (14:00→23:15)
[2019-01-27] MEDS: hydrALAZINE HCL 10 MG TABLET PO SCH ×2 (15:00→22:25)
[2019-01-27] MEDS: LACTOBACILLUS ACIDOPHILUS 1 TABLET PO SCH (15:28)
[2019-01-27] MEDS: THIAMINE HCL 100 MG TABLET (FP) PO SCH (22:25)
[2019-01-28] MEDS: hydrALAZINE HCL 10 MG TABLET PO SCH ×3 (05:26→22:12)
[2019-01-28 09:34] LABS: HEMATOCRIT 34.6 % (35.4-49); HEMOGLOBIN 11.8 GM/dL (11.7-16.9); MCHC 34.1 g/dl (32.0-35.9); MEAN PLT VOLUME 8.8 fl (7.5-11.1); RBC 3.68 M/mm3 (4.00-5.60); WHITE BLOOD COUNT 6.5 K/mm3 (4.0-10.0)
[2019-01-28 09:38] LABS: ALBUMIN 3.3 g/dl (3.4-5.0); BILIRUBIN,TOTAL 1.2 mg/dL (0.2-1); BLOOD UREA NITROGEN 30.6 mg/dL (7-18); CALCIUM 8.6 mg/dL (8.5-10.1); CREATININE 0.9 mg/dL (0.55-1.3); TOT PROT 8.4 g/dl (6.4-8.2)
[2019-01-28] MEDS ORDERED: METHADONE HCL 10 MG TABLET (FOR DETOX USE ONLY) PO ONE (10:00)
[2019-01-28 10:03] LABS: PLATELET COUNT 226 K/MM3 (134-434)
[2019-01-28] MEDS: LACTOBACILLUS ACIDOPHILUS 1 TABLET PO SCH (10:17)
[2019-01-28] MEDS: CEFUROXIME AXETIL 500 MG TABLET PO SCH ×2 (10:17→22:13)
[2019-01-28] MEDS: PRENATAL VITAMINS W/ FOLIC ACID TABLET (FP) PO SCH (10:17)
[2019-01-28] MEDS: amLODIPine BESYLATE 10 MG TABLET (FP) PO SCH (10:17)
[2019-01-28] MEDS ORDERED: hydrOXYzine PAMOATE 25 MG CAPSULE (FP) PO PRN (12:57)
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
[2019-01-28] MEDS ORDERED: hydrOXYzine PAMOATE 50 MG CAPSULE (FP) PO PRN (14:55)
--- NOTE | 2019-01-28 15:22 | PN ---
BHS COWS - Scale Resting Pulse: 1= [place] 81-100 Sweatin= Chills/Flushing Restless Observation: 3= Extraneous Movement Pupil Size: 0= Normal to Room Light Bone or Joint Aches: 2= Severe Diffuse Aches Runny Nose/ Eye Tearin= Nasal Congestion GI Upset > 30mins: 2= Nausea/Diarrhea Tremor Observation of Outstretched Hands: 2= Slight Tremor Visible Yawning Observation: 0= None Anxiety or Irritability: 2=Irritable/Anxious Goose Flesh Skin: 0=Smooth Skin COWS Score: 14 BHS Progress Note (SOAP) Subjective: Back pain, profuse sweating, legs hurting, anxious Objective: 01/28/19 15:16 Last Vital Signs Temp Pulse Resp BP Pulse Ox 97.5 F L 82 18 144/74 01/28/19 14:33 01/28/19 14:33 01/28/19 14:33 01/28/19 14:33 Elevated b/p noted (has htn, on medication) Laboratory Tests 01/28/19 01/28/19 01/28/19 07:30 07:30 07:30 WBC 6.5 RBC 3.68 L Hgb 11.8 Hct 34.6 L MCV 94.0 MCH 32.0 MCHC 34.1 RDW 14.0 D Plt Count 226 D MPV 8.8 Sodium 134 L Potassium 4.0 Chloride 101 Carbon Dioxide 27 Anion Gap 6 L BUN 30.6 H Creatinine 0.9 Est GFR (CKD-EPI)AfAm 119.97 Est GFR (CKD-EPI)NonAf 103.51 Random Glucose 126 H Calcium 8.6 Total Bilirubin 1.2 H AST 252 H ALT 333 H Alkaline Phosphatase 69 Total Protein 8.4 H Albumin 3.3 L RPR Titer Nonreactive Labs reviewed: Na 134, glucose 126, LFTs elevated Assessment: 01/28/19 15:19 Withdrawal symptoms Noted with htn, mild hyponatremia, hyperglycemia and elevated LFTs Plan: Continue detox Encouraged PO water intake HTN: continue norvasc and hydralazine Mild hyponatremia: asymptomatic, repeat serum Na level Hyperglycemia: could be r/t withdrawal, repeat fasting glucose Elevated LFTs: most likely r/t alcoholism and hepatitis c, repeat hepatic panel
[2019-01-28] MEDS ORDERED: SUVOREXANT 10 MG TABLET PO PRN (22:00)
[2019-01-28] MEDS: THIAMINE HCL 100 MG TABLET (FP) PO SCH (23:38)
[2019-01-29] MEDS: MELATONIN 5 MG TABLETS PO PRN ×2 (02:39→22:09)
[2019-01-29] MEDS: hydrALAZINE HCL 10 MG TABLET PO SCH ×3 (05:40→22:09)
[2019-01-29] MEDS ORDERED: METHADONE HCL 10 MG TABLET (FOR DETOX USE ONLY) PO ONE (10:00)
[2019-01-29] MEDS: LACTOBACILLUS ACIDOPHILUS 1 TABLET PO SCH (10:11)
[2019-01-29] MEDS: PRENATAL VITAMINS W/ FOLIC ACID TABLET (FP) PO SCH (10:11)
[2019-01-29] MEDS: amLODIPine BESYLATE 10 MG TABLET (FP) PO SCH (10:11)
[2019-01-29 10:34] LABS: ALBUMIN 3.1 g/dl (3.4-5.0); BILIRUBIN,DIRECT 0.3 mg/dL (0.0-0.2); BILIRUBIN,TOTAL 0.7 mg/dL (0.2-1); TOT PROT 7.9 g/dl (6.4-8.2)
[2019-01-29] MEDS: CEFUROXIME AXETIL 500 MG TABLET PO SCH ×2 (12:07→22:10)
--- NOTE | 2019-01-29 13:05 | PN ---
BHS COWS - Scale Resting Pulse: 0= [place] 80 or Below Sweatin=Flushed/Facial Moisture Restless Observation: 1= Difficult to Sit Still Pupil Size: 0= Normal to Room Light Bone or Joint Aches: 1= Mild Discomfort Runny Nose/ Eye Tearin= Nasal Congestion GI Upset > 30mins: 0= None Tremor Observation of Outstretched Hands: 1= Tremor [place], Not Seen Yawning Observation: 1= 1-2x During Session Anxiety or Irritability: 2=Irritable/Anxious Goose Flesh Skin: 0=Smooth Skin COWS Score: 9 BHS Progress Note (SOAP) Subjective: irritable agitation sweats Objective: 01/29/19 13:03 Vital Signs Temperature 97.3 F L 01/29/19 09:21 Pulse Rate 80 01/29/19 09:21 Respiratory Rate 18 01/29/19 09:21 Blood Pressure 138/77 01/29/19 09:21 O2 Sat by Pulse Oximetry (%) Laboratory Tests 01/28/19 01/28/19 01/28/19 07:30 07:30 07:30 WBC 6.5 RBC 3.68 L Hgb 11.8 Hct 34.6 L MCV 94.0 MCH 32.0 MCHC 34.1 RDW 14.0 D Plt Count 226 D MPV 8.8 Sodium 134 L Potassium 4.0 Chloride 101 Carbon Dioxide 27 Anion Gap 6 L BUN 30.6 H Creatinine 0.9 Est GFR (CKD-EPI)AfAm 119.97 Est GFR (CKD-EPI)NonAf 103.51 Random Glucose 126 H Fasting Glucose Calcium 8.6 Total Bilirubin 1.2 H Direct Bilirubin AST 252 H ALT 333 H Alkaline Phosphatase 69 Total Protein 8.4 H Albumin 3.3 L RPR Titer Nonreactive 01/29/19 07:00 WBC RBC Hgb Hct MCV MCH MCHC RDW Plt Count MPV Sodium 136 Potassium Chloride Carbon Dioxide Anion Gap BUN Creatinine Est GFR (CKD-EPI)AfAm Est GFR (CKD-EPI)NonAf Random Glucose Fasting Glucose 102 Calcium Total Bilirubin 0.7 Direct Bilirubin 0.3 H AST 293 H ALT 377 H Alkaline Phosphatase 70 Total Protein 7.9 Albumin 3.1 L RPR Titer labs noted aaox3 ambulating no acute distress no improvement with repeated ast/alt lab encourage to increase water intake. repeat labs in am Assessment: 01/29/19 13:04 withdrawal sx Plan: continue detox increase fluids repeat ast/alt/inr
[2019-01-29] MEDS: THIAMINE HCL 100 MG TABLET (FP) PO SCH (22:09)
[2019-01-30] MEDS: hydrALAZINE HCL 10 MG TABLET PO SCH ×3 (06:07→22:21)
[2019-01-30] MEDS ORDERED: METHADONE HCL 10 MG TABLET (FOR DETOX USE ONLY) PO ONE (10:00)
[2019-01-30] MEDS: PRENATAL VITAMINS W/ FOLIC ACID TABLET (FP) PO SCH (10:03)
[2019-01-30] MEDS: CEFUROXIME AXETIL 500 MG TABLET PO SCH ×2 (10:03→22:21)
[2019-01-30] MEDS: LACTOBACILLUS ACIDOPHILUS 1 TABLET PO SCH (10:03)
[2019-01-30] MEDS: amLODIPine BESYLATE 10 MG TABLET (FP) PO SCH (10:41)
--- NOTE | 2019-01-30 11:58 | PN ---
BHS COWS - Scale Resting Pulse: 1= [place] 81-100 Sweatin= No chills or Flushing Restless Observation: 1= Difficult to Sit Still Pupil Size: 1= Pupils >than Normal Bone or Joint Aches: 1= Mild Discomfort Runny Nose/ Eye Tearin= Nasal Congestion GI Upset > 30mins: 1= Stomach Cramp Tremor Observation of Outstretched Hands: 1= Tremor [place], Not Seen Yawning Observation: 1= 1-2x During Session Anxiety or Irritability: 2=Irritable/Anxious Goose Flesh Skin: 0=Smooth Skin COWS Score: 10 S Progress Note (SOAP) Subjective: alert,irritable,anxious,interrupted sleep,tremor,pain in the body Objective: 01/30/19 11:57 Vital Signs Temperature 97.9 F 01/30/19 09:30 Pulse Rate 81 01/30/19 09:30 Respiratory Rate 16 01/30/19 09:30 Blood Pressure 108/56 L 01/30/19 09:30 O2 Sat by Pulse Oximetry (%) Assessment: 01/30/19 11:57 withdrawal symptom Plan: continue detox,discharge in am
[2019-01-30] MEDS: THIAMINE HCL 100 MG TABLET (FP) PO SCH (22:20)
[2019-01-30] MEDS: MELATONIN 5 MG TABLETS PO PRN (22:20)
[2019-01-31] MEDS ORDERED: METHADONE HCL 5 MG TABLET (FOR DETOX USE ONLY) PO ONE (06:00)
[2019-01-31] MEDS: hydrALAZINE HCL 10 MG TABLET PO SCH (06:01)
[2019-01-31 08:05] VITALS: BP 156/86; PULSE 67; TEMP 97.7
--- NOTE | 2019-01-31 15:53 | DS ---
[facility] Detox Discharge Summary Admission Date: 01/27/19 Discharge Date: 01/31/19 - History Present History: Alcohol Dependence, Cocaine Dependence, Opioid Dependence Additional Comments: PT COMPLETED DETOX AND DISCHARGED TODAY. PT REPORTS HE GOES TO [facility] FOR PRIMARY. - Physical Exam Results Vital Signs: Vital Signs Temperature 97.7 F 01/31/19 08:01 Pulse Rate 67 01/31/19 08:01 Respiratory Rate 18 01/31/19 08:01 Blood Pressure 156/86 01/31/19 08:01 O2 Sat by Pulse Oximetry (%) - Treatment Hospital Course: Detox Protocol Followed, Detoxed Safely, Responded well, Discharged Condition Good, Rehab Referral Accepted Patient has Accepted a Rehab Referral to: [facility] - Medication Discharge Medications: Ambulatory Orders Amlodipine Besylate [Norvasc -] 10 mg PO DAILY 01/27/19 Cefuroxime Axetil [Ceftin -] 500 mg PO BID 01/27/19 Folic Acid - 1 mg PO DAILY 01/27/19 Hydralazine HCl 10 mg PO TID 01/27/19
== END 2019-01-31 09:25 | disposition home or self-care (01) | DRG 773 ==
LOC: YASAS 08:52 → Y6N 11:08
PROVIDERS: ADMIT Surgery; ATTEND Surgery
PROC: HZ2ZZZZ Detoxification Services for Substance Abuse Treatment (ICD-10-PCS; principal; 2019-01-27)
DX: F11.23 Opioid dependence with withdrawal (principal); F10.230 Alcohol dependence with withdrawal, uncomplicated; F14.20 Cocaine dependence, uncomplicated; F12.20 Cannabis dependence, uncomplicated; F17.210 Nicotine dependence, cigarettes, uncomplicated; F39 Unspecified mood [affective] disorder; F19.280 Other psychoactive substance dependence with psychoactive substance-induced anxiety disorder; F19.282 Other psychoactive substance dependence with psychoactive substance-induced sleep disorder; F31.9 Bipolar disorder, unspecified; F43.10 Post-traumatic stress disorder, unspecified; M00.9 Pyogenic arthritis, unspecified; E87.1 Hypo-osmolality and hyponatremia; I10 Essential (primary) hypertension; R73.9 Hyperglycemia, unspecified; R94.5 Abnormal results of liver function studies; B18.2 Chronic viral hepatitis C; Z91.013 Allergy to seafood
CPT/HCPCS: 36415; 80053; 80076; 82947; 84295; 85027; 86593

== ENCOUNTER 2019-02-25 08:42 | Inpatient (IN) | payer OTHER ==
[2019-02-25 09:22] VITALS: BMI 30.7
--- NOTE | 2019-02-25 10:08 | HP ---
"COWS - Scale Resting Pulse: 0= [place] 80 or Below Sweatin= No chills or Flushing Restless Observation: 0= Sits Still Pupil Size: 0= Normal to Room Light Bone or Joint Aches: 4=Acute Joint/Muscle Pain Runny Nose/ Eye Tearin= None GI Upset > 30mins: 0= None Tremor Observation: 0= None Yawning Observation: 0= None Anxiety or Irritability: 2=Irritable/Anxious Goose Flesh Skin: 0=Smooth Skin COWS Score: 6 CIWA Score Nausea/Vomitin-No Nausea/No Vomiting Muscle Tremors: None Anxiety: 2 Agitation: 0-Normal Activity Paroxysmal Sweats: No Perspiration Orientation: 0-Oriented Tacttile Disturbances: 0-None Auditory Disturbances: 2-Mild Harshness/Frighten Visual Disturbances: 2-Mild Sensitivity Headache: 2-Mild CIWA-Ar Total Score: 8 - Admission Criteria OASAS Guidelines: Admission for Medically Managed Detox: Requires at least one of the followin. CIWA greater than 12 2. Seizures within the past 24 hours 3. Delirium tremens within the past 24 hours 4. Hallucinations within the past 24 hours 5. Acute intervention needed for co occurring medical disorder 6. Acute intervention needed for co occurring psychiatric disorder 7. Severe withdrawal that cannot be handled at a lower level of care (continued vomiting, continued diarrhea, abnormal vital signs) requiring intravenous medication and/or fluids 8. Admission [facility] Allergies/Adverse Reactions: Allergies Allergy/AdvReac Type Severity Reaction Status Date / Time shellfish derived Allergy Severe Difficulty Verified 01/27/19 09:49 Breathing No Known Drug Allergies Allergy Unknown Verified 12/08/18 18:03 History of Present Illness: This report was requested by: Phylicia Johnson | Reference #: [id number] Others' Prescriptions Patient Name: Qasim Cameron Date: 1975 Address: [place] [address] Sex: Male Rx Written Rx Dispensed Drug Quantity Days Supply Prescriber Name 02/08/2019 02/09/2019 chlordiazepoxide 25 mg capsule 8 2 Ricardo Herbert pt here requesting detox from heroin use , reports relapse after d/c from this facility 01/31/19 next day , current daily use 12 bags heroin IVDU in [place] [facility] , needles from the exchange , denies sharing , + re-using , denies abscess , + OD x 2-3 Narcan by EMS 3 years ago . Denies recent hospital visits. Latest use midnight , current symptoms as above . Prior [facility] Narco [place], highest dose 130 mg , left program 2/2 ongoing opiate use . cocaine - IVDU 1/2 gr latest use 3 days ago etoh - 4 days ago , 2 x /week 2 pints vodka, 2 x 6-pk beer reports anxiety if not drinking . cannabis- occasionally tobacco - 1/4 ppd denies other illicits PMHX : hep C dx 2012 no tx ( RF= IVDU ) , left shoulder bursitis 2 mo ago tx w/ abx PSHx : nose frx 1984 psych: denies , denies current Si / hi SHX : lives w/ cousin , unemployed , finances habit through odd jobs . Exam Limitations: No Limitations - Ebola screening Have you traveled outside of the country in the last 21 days: No Have you had contact with anyone from an Ebola affected area: No Do you have a fever: No - Review of Systems Constitutional: See HPI EENT: reports: No Symptoms Reported Respiratory: reports: No Symptoms reported Cardiac: reports: No Symptoms Reported GI: reports: No Symptoms Reported : reports: No Symptoms Reported Musculoskeletal: reports: Back Pain Integumentary: reports: See HPI Neuro: reports: Headache Endocrine: reports: No Symptoms Reported Psychiatric: reports: Orientated x3 Patient History - Patient Medical History Hx Anemia: No Hx Asthma: No Hx Chronic Obstructive Pulmonary Disease (COPD): No Hx Cancer: No Hx Cardiac Disorders: No Hx Congestive Heart Failure: No Hx Hypertension: Yes (on meds) Hx Hypercholesterolemia: No Hx Pacemaker: No HX Cerebrovascular Accident: No Hx Seizures: No Hx Dementia: No Hx Diabetes: No Hx Gastrointestinal Disorders: No Hx Liver Disease: Yes (?cirrhosis, hep C) Hx Genitourinary Disorders: No Hx Sexually Transmitted Disorders: No Hx Renal Disease (ESRD): No Hx Thyroid Disease: No Hx Human Immunodeficiency Virus (HIV): No Hx Hepatitis C: Yes (diagnosed 2011,never treated) Hx Depression: Yes (hx meds in past - PTSD - never hospitalized) Hx Suicide Attempt: No Hx Bipolar Disorder: Yes (not sure) Hx Schizophrenia: No - Patient Surgical History Past Surgical History: Yes Hx Neurologic Surgery: No Hx Cataract Extraction: No Hx Cardiac Surgery: No Hx Lung Surgery: No Hx Breast Surgery: No Hx Breast Biopsy: No Hx Abdominal Surgery: No Hx Appendectomy: No Hx Cholecystectomy: No Hx Genitourinary Surgery: No Hx Section: No Hx Orthopedic Surgery: No Hx Hysterectomy: No Other Surgical History: fx, nose at age 10 Anesthesia Reaction: No - PPD History Date: 11/04/18 Results: 0mm - Smoking Cessation Smoking history: Current every day smoker Have you smoked in the past 12 months: Yes Aproximately how many cigarettes per day: 5 Hx Chewing Tobacco Use: No Initiated information on smoking cessation: No - Substances abused Alcohol Substance route: Oral Frequency: 1-2 times per week Amount used: 2 pt. vodka, 1 six beer (16 0z) Age of first use: 12 Date of last use: 02/19/19 Cocaine Substance route: Injection Frequency: 1-2 times per week Amount used: 1 gram Age of first use: 22 Date of last use: 02/23/19 Heroin Substance route: Injection Frequency: Daily Amount used: 12-15 bags Age of first use: 22 Date of last use: 02/25/19 Marijuana/Hashish Substance route: Smoking Frequency: 1-2 times per week Amount used: 1/2 blunt Age of first use: 14 Date of last use: 02/22/19 Family Disease History - Family Disease History Family Disease History: Diabetes: Grandparent, Father (d. 50 , murdered @ client age 12 ), Other: Father, Mother (living - healthy), Sister (two - living - healthy), Son (two ages 21 and 19, healthy) Admission Physical Exam [facility] - Vital Signs Vital Signs: Vital Signs - 24 hr 02/25/19 09:01 Temperature 97.1 F L Pulse Rate 72 Respiratory 18 Rate Blood Pressure 145/90 - Physical General Appearance: Yes: Mild Distress, Anxious HEENTM: Yes: EOMI, Hearing grossly Normal, Normocephalic, Normal Voice Respiratory: Yes: Lungs Clear, Normal Breath Sounds, No Respiratory Distress, No Accessory Muscle Use Neck: Yes: No masses,lesions,Nodules, Trachea in good position Cardiology: Yes: Regular Rhythm, Regular Rate, S1, S2 Abdominal: Yes: Non Tender, Soft Musculoskeletal: Yes: Gait Steady Extremities: Yes: Normal Range of Motion, Non-Tender, Swelling ([place] pretibial edema and hyperpigmentation) Neurological: Yes: Fully Oriented, Alert, Motor Strength 12/03 Integumentary: Yes: Warm, Erythema ([place] pretibial erythema and hyperpigmentation), Track [place] - Addiitonal Findings: ekg 12/08/18 QTc 470 ms - Diagnostic (1) Opioid dependence with intoxication Current Visit: Yes Status: Acute (2) Alcohol abuse, episodic drinking behavior Current Visit: Yes Status: Acute (3) Cocaine dependence Current Visit: Yes Status: Chronic (4) Marijuana dependence Current Visit: Yes Status: Chronic (5) Nicotine dependence Current Visit: Yes Status: Chronic Qualifiers: Nicotine product type: cigarettes Breathalyzer - Breathalyzer Breathalyzer: 0 Urine Drug Screen - Test Device Lot number: [id number] Expiration date: 11/28/20 - Control Is test valid?: Yes - Results Drug screen NEGATIVE: No Urine drug screen results: THC-Marijuana, DORCAS-Cocaine, FEN-Fentanyl, MOP-Opiates , MTD-Methadone, BZO-Benzodiazepines Inpatient Rehab Admission - Rehab Decision to Admit Inpatient rehab admission?: No"
[2019-02-25] MEDS ORDERED: BISMUTH SUBSALICYLATE 524 MG/30 ML UD PO PRN (10:26)
[2019-02-25] MEDS ORDERED: hydrOXYzine PAMOATE 25 MG CAPSULE (FP) PO PRN (10:26)
[2019-02-25] MEDS ORDERED: MAGNESIUM HYDROX 2400MG/30ML ORAL SUSPENSION 30 ML CUP PO PRN (10:26)
[2019-02-25] MEDS ORDERED: MAG HYDROX/AL HYDROX/SIMETH 30 ML UNIT-DOSE CUP PO PRN (10:26)
[2019-02-25] MEDS ORDERED: ACETAMINOPHEN 325 MG TABLET (FP) PO PRN ×2 (10:26)
[2019-02-25] MEDS ORDERED: IBUPROFEN 400 MG TABLET (FP) PO PRN (10:26)
[2019-02-25] MEDS ORDERED: NICOTINE POLACRILEX 2 MG GUM BUC PRN (10:26)
[2019-02-25] MEDS ORDERED: MENTHOL/PHENOL 1 EACH UD MM PRN (10:26)
[2019-02-25] MEDS ORDERED: MAGNESIUM CITRATE 300 ML BOTTLE PO PRN (10:26)
[2019-02-25] MEDS ORDERED: METHOCARBAMOL 500 MG TABLET PO PRN (10:26)
[2019-02-25] MEDS ORDERED: LORazepam 1 MG TABLET PO PRN (10:27)
[2019-02-25] MEDS ORDERED: cloNIDine HCL 0.1 MG TABLET PO PRN (10:27)
[2019-02-25] MEDS: LORazepam 2 MG TABLET PO SCH ×3 (12:23→22:18)
[2019-02-25] MEDS: hydrALAZINE HCL 50 MG TABLET (FP) PO SCH ×2 (13:22→23:12)
[2019-02-25] MEDS ORDERED: METHADONE HCL 10 MG TABLET (FOR DETOX USE ONLY) PO ONE (14:00)
[2019-02-25] MEDS: THIAMINE HCL 100 MG TABLET (FP) PO SCH (22:18)
[2019-02-25] MEDS: MELATONIN 5 MG TABLETS PO PRN (22:19)
[2019-02-26] MEDS: LORazepam 2 MG TABLET PO SCH ×4 (05:12→22:02)
[2019-02-26] MEDS: hydrALAZINE HCL 50 MG TABLET (FP) PO SCH ×3 (07:54→22:01)
[2019-02-26] MEDS ORDERED: METHADONE HCL 5 MG TABLET (FOR DETOX USE ONLY) PO ONE (10:00)
[2019-02-26] MEDS: PRENATAL VITAMINS W/ FOLIC ACID TABLET (FP) PO SCH (10:22)
[2019-02-26] MEDS ORDERED: DICYCLOMINE HCL 10 MG CAPSULE PO PRN (11:01)
--- NOTE | 2019-02-26 11:05 | PN ---
[facility] CIWA - CIWA Score Nausea/Vomitin-Mild Nausea/No Vomiting Muscle Tremors: 3 Anxiety: 3 Agitation: 3 Paroxysmal Sweats: 1-Minimal Palms Moist Orientation: 0-Oriented Tacttile Disturbances: 1-Very Mild Itch/Numbness Auditory Disturbances: 0-None Visual Disturbances: 0-None Headache: 1-Very Mild CIWA-Ar Total Score: 13 BHS COWS - Scale Resting Pulse: 0= [place] 80 or Below Sweatin= Chills/Flushing Restless Observation: 0= Sits Still Pupil Size: 0= Normal to Room Light Bone or Joint Aches: 2= Severe Diffuse Aches Runny Nose/ Eye Tearin= Nasal Congestion GI Upset > 30mins: 2= Nausea/Diarrhea Tremor Observation of Outstretched Hands: 1= Tremor [place], Not Seen Yawning Observation: 0= None Anxiety or Irritability: 1=Feels Anxious/Irritable Goose Flesh Skin: 3=Piloerection COWS Score: 11 S Progress Note (SOAP) Subjective: 43 years old male admitted on 02/25/19 for alcohol and opiate withdrawal sx stomach upset body aches joins pain begin bentyl zantac Objective: 02/26/19 11:05 Vital Signs Temperature 96.9 F L 02/26/19 09:47 Pulse Rate 61 02/26/19 09:47 Respiratory Rate 18 02/26/19 09:47 Blood Pressure 94/57 L 02/26/19 09:47 O2 Sat by Pulse Oximetry (%) 02/26/19 11:06 see 12/2018 lab report Assessment: 02/26/19 11:06 alcohol and opiate withdrawal sx discuss medication assisted treatment program Plan: continue alcohol and opiate detox
[2019-02-26] MEDS: RANITIDINE HCL 150 MG TABLET (FP) PO SCH ×2 (13:43→22:02)
[2019-02-26] MEDS: THIAMINE HCL 100 MG TABLET (FP) PO SCH (22:02)
[2019-02-26] MEDS: MELATONIN 5 MG TABLETS PO PRN (22:02)
[2019-02-27] MEDS: hydrALAZINE HCL 50 MG TABLET (FP) PO SCH ×2 (05:30→13:58)
[2019-02-27] MEDS: LORazepam 1 MG TABLET PO SCH ×2 (05:30→10:06)
[2019-02-27] MEDS ORDERED: METHADONE HCL 10 MG TABLET (FOR DETOX USE ONLY) PO ONE (10:00)
[2019-02-27] MEDS: PRENATAL VITAMINS W/ FOLIC ACID TABLET (FP) PO SCH (10:06)
[2019-02-27] MEDS: RANITIDINE HCL 150 MG TABLET (FP) PO SCH (10:06)
[2019-02-27 13:26] VITALS: BP 125/75; PULSE 64; TEMP 97.2
--- NOTE | 2019-02-27 13:38 | PN ---
S CIWA - CIWA Score Nausea/Vomitin-No Nausea/No Vomiting Muscle Tremors: None Anxiety: 3 Agitation: 1-Slight > Activity Paroxysmal Sweats: No Perspiration Orientation: 0-Oriented Tacttile Disturbances: 2-Mild Itch/Numbness/Burn Auditory Disturbances: 0-None Visual Disturbances: 2-Mild Sensitivity Headache: 0-None Present CIWA-Ar Total Score: 8 BHS COWS - Scale Resting Pulse: 0= [place] 80 or Below Sweatin= Chills/Flushing Restless Observation: 1= Difficult to Sit Still Pupil Size: 0= Normal to Room Light Bone or Joint Aches: 2= Severe Diffuse Aches Runny Nose/ Eye Tearin= None GI Upset > 30mins: 1= Stomach Cramp Tremor Observation of Outstretched Hands: 0= None Yawning Observation: 1= 1-2x During Session Anxiety or Irritability: 2=Irritable/Anxious Goose Flesh Skin: 3=Piloerection COWS Score: 11 S Progress Note (SOAP) Subjective: Stomach Cramping, Body Aches, Anxious. Objective: PATIENT A & O X 3, OBSERVED AMBULATING ON UNIT UNASSISTED. IN NO ACUTE DISTRESS. 02/27/19 13:41 Vital Signs Temperature 97.2 F L 02/27/19 13:25 Pulse Rate 64 02/27/19 13:25 Respiratory Rate 18 02/27/19 13:25 Blood Pressure 125/75 02/27/19 13:25 O2 Sat by Pulse Oximetry (%) MOST RECENT LABS (01/28/2019) REVIEWED. 02/27/19 13:43 Assessment: 02/27/19 13:45 WITHDRAWAL SYMPTOMS. Plan: CONTINUE DETOX. INCREASE DAILY PO WATER INTAKE.
--- NOTE | 2019-02-27 16:36 | DS ---
[facility] Detox Discharge Summary Admission Date: 02/25/19 Discharge Date: 02/27/19 - History Present History: Alcohol Dependence, Cannabis Dependence, Cocaine Dependence, Opioid Dependence Additional Comments: DESPITE EFFORTS BY BAD CREDIT COLLECTOR AND BY NURSING STAFF TO ADDRESS PATIENT'S MEDICAL NEEDS / CONCERNS, PATIENT DOES NOT WISH TO REMAIN TO COMPLETE DETOX REGIMEN. RISKS OF LEAVING DETOX UNIT AGAINST MEDICAL ADVICE AND PRIOR TO COMPLETION OF DETOX REGIMEN EXPLAINED TO PATIENT. PATIENT ADVISED TO GO IMMEDIATELY TO NEAREST ER SHOULD ANY INTOLERABLE WITHDRAWAL / DETOX SYMPTOMS DEVELOP AT ANY TIME. PATIENT VERBALIZED UNDERSTANDING OF ALL INFORMATION / RECOMMENDATIONS PRESENTED TO HIM PRIOR TO DEPARTURE FROM DETOX UNIT. PATIENT LEFT DETOX UNIT IN STABLE MEDICAL CONDITION. Pertinent Past History: Nicotine Dependence, HTN, Hep C, Intravenous Drug User, History Of Bursitits Of Left Shoulder, History Of Cirrhosis Of Liver, Depression, Bipolar Disorder, History Of Post-Traumatic Stress Disorder. - Physical Exam Results Vital Signs: Vital Signs Temperature 97.2 F L 02/27/19 13:25 Pulse Rate 64 02/27/19 13:25 Respiratory Rate 18 02/27/19 13:25 Blood Pressure 125/75 02/27/19 13:25 O2 Sat by Pulse Oximetry (%) Pertinent Admission Physical Exam Findings: WITHDRAWAL SYMPTOMS. - Medication Discharge Medications: Ambulatory Orders Amlodipine Besylate [Norvasc -] 10 mg PO DAILY 01/27/19 Cefuroxime Axetil [Ceftin -] 500 mg PO BID 01/27/19 Folic Acid - 1 mg PO DAILY 01/27/19 Hydralazine HCl 10 mg PO TID 01/27/19 Hydralazine HCl 50 mg PO TID 02/25/19 - Diagnosis (1) Alcohol abuse, episodic drinking behavior Status: Acute (2) Opioid dependence with intoxication Status: Acute Qualifiers: Complication of substance-induced condition: uncomplicated Qualified Code(s ): F11.220 - Opioid dependence with intoxication, uncomplicated (3) Cocaine dependence Status: Chronic (4) Marijuana dependence Status: Chronic (5) Nicotine dependence Status: Chronic Qualifiers: Nicotine product type: cigarettes Substance use status: uncomplicated Qualified Code(s): F17.210 - Nicotine dependence, cigarettes, uncomplicated - AMA Did Patient Leave Against Medical Advice: Yes (PATIENT DID NOT WISH TO REMAIN TO COMPLETE DETOX REGIMEN.)
[2019-02-28] MEDS ORDERED: LORazepam 0.5 MG TABLET PO PRN
[2019-02-28] MEDS ORDERED: LORazepam 0.5 MG TABLET PO SCH (05:00)
[2019-02-28] MEDS ORDERED: METHADONE HCL 5 MG TABLET (FOR DETOX USE ONLY) PO ONE (06:00)
[2019-03-01] MEDS ORDERED: LORazepam 0.5 MG TABLET PO ONE (05:00)
== END 2019-02-27 14:40 | disposition left against medical advice (07) | DRG 770 ==
LOC: YASAS 08:42 → Y3N 10:52
PROVIDERS: ADMIT Surgery; ATTEND Surgery
PROC: HZ2ZZZZ Detoxification Services for Substance Abuse Treatment (ICD-10-PCS; principal; 2019-02-25)
DX: F10.230 Alcohol dependence with withdrawal, uncomplicated (principal); F11.23 Opioid dependence with withdrawal; F14.20 Cocaine dependence, uncomplicated; F12.20 Cannabis dependence, uncomplicated; F17.210 Nicotine dependence, cigarettes, uncomplicated; I10 Essential (primary) hypertension; B18.2 Chronic viral hepatitis C; Z91.013 Allergy to seafood

== ENCOUNTER 2019-04-05 12:26 | Inpatient (IN) | payer OTHER ==
[2019-04-05 15:26] VITALS: BMI 30.9
--- NOTE | 2019-04-05 16:40 | HP ---
COWS - Scale Resting Pulse: 0= [place] 80 or Below Sweatin= Chills/Flushing Restless Observation: 1= Difficult to Sit Still Pupil Size: 0= Normal to Room Light Bone or Joint Aches: 4=Acute Joint/Muscle Pain Runny Nose/ Eye Tearin= None GI Upset > 30mins: 1= Stomach Cramp Tremor Observation: 4= Gross Tremor/Twitching Yawning Observation: 0= None Anxiety or Irritability: 2=Irritable/Anxious Goose Flesh Skin: 0=Smooth Skin COWS Score: 13 CIWA Score Nausea/Vomitin-Mild Nausea/No Vomiting Muscle Tremors: 4-Moderate,w/Arms Extend Anxiety: 2 Agitation: 2 Paroxysmal Sweats: No Perspiration Orientation: 0-Oriented Tacttile Disturbances: 1-Very Mild Itch/Numbness Auditory Disturbances: 0-None Visual Disturbances: 3-Moderate Sensitivity Headache: 0-None Present CIWA-Ar Total Score: 13 - Admission Criteria OASAS Guidelines: Admission for Medically Managed Detox: Requires at least one of the followin. CIWA greater than 12 2. Seizures within the past 24 hours 3. Delirium tremens within the past 24 hours 4. Hallucinations within the past 24 hours 5. Acute intervention needed for co occurring medical disorder 6. Acute intervention needed for co occurring psychiatric disorder 7. Severe withdrawal that cannot be handled at a lower level of care (continued vomiting, continued diarrhea, abnormal vital signs) requiring intravenous medication and/or fluids 8. Admission [facility] Chief Complaint: detox from heroin IV Allergies/Adverse Reactions: Allergies Allergy/AdvReac Type Severity Reaction Status Date / Time shellfish derived Allergy Severe Difficulty Verified 01/27/19 09:49 Breathing No Known Drug Allergies Allergy Verified 04/05/19 17:38 History of Present Illness: 43M w/ pmh of HepC(dx 2012), detox for heroin. Takes 15-20bags heroin(IV) for 20ys, very regularly for 10ys. Last heroin usage was ~0500. OD'd x5, last OD was 2mo prior. Has had CT H, neg for brain bleed. Tried detox 1mo prio but had to leave early d/t son being shot. Cocaine(IV) $40 a few times a month, started 20ys prior. [place]. Denies intentional fentanyl, benzo use. Rarely uses methadone, when heroin is unavailable. Drinks EtOH 2pints vodka, 6packs; binging on weekends. Denies crack. MJ once a month. 3-4cigarettes daily. Incarerated from [id number] fro drug-related crime. Denies h/o suicide, SI, [place]. 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 Lives with drug- addicted cousin. Gets money from family. - Ebola screening Have you traveled outside of the country in the last 21 days: No (N) Have you had contact with anyone from an Ebola affected area: No Do you have a fever: No - Review of Systems Constitutional: Weight Stable EENT: denies: Blurred Vision, Double Vision Respiratory: denies: Cough, Shortness of Breath Cardiac: denies: Chest Pain, Palpitations, Chest Tightness GI: denies: Constipated, Diarrhea, Nausea, Vomiting : denies: Burning, Dysuria Musculoskeletal: reports: Back Pain, Joint Pain Integumentary: denies: Flushing Neuro: denies: Headache, Numbness Endocrine: denies: Excessive Sweating Patient History - Patient Medical History Hx Anemia: No Hx Asthma: No Hx Chronic Obstructive Pulmonary Disease (COPD): No Hx Cancer: No Hx Cardiac Disorders: No Hx Congestive Heart Failure: No Hx Hypertension: Yes (on meds) Hx Hypercholesterolemia: No Hx Pacemaker: No HX Cerebrovascular Accident: No Hx Seizures: No Hx Dementia: No Hx Diabetes: No Hx Gastrointestinal Disorders: No Hx Liver Disease: Yes (?cirrhosis, hep C) Hx Genitourinary Disorders: No Hx Sexually Transmitted Disorders: No Hx Renal Disease (ESRD): No Hx Thyroid Disease: No Hx Human Immunodeficiency Virus (HIV): No Hx Hepatitis C: Yes (diagnosed 2011,never treated) Hx Depression: Yes (hx meds in past - PTSD - never hospitalized) Hx Suicide Attempt: No Hx Bipolar Disorder: Yes (not sure) Hx Schizophrenia: No - Patient Surgical History Past Surgical History: Yes Hx Neurologic Surgery: No Hx Cataract Extraction: No Hx Cardiac Surgery: No Hx Lung Surgery: No Hx Breast Surgery: No Hx Breast Biopsy: No Hx Abdominal Surgery: No Hx Appendectomy: No Hx Cholecystectomy: No Hx Genitourinary Surgery: No Hx Section: No Hx Orthopedic Surgery: No Hx Hysterectomy: No Other Surgical History: fx, nose at age 10 Anesthesia Reaction: No - PPD History Date: 11/04/18 Results: 0mm - Smoking Cessation Smoking history: Current every day smoker Have you smoked in the past 12 months: Yes Aproximately how many cigarettes per day: 5 Hx Chewing Tobacco Use: No Initiated information on smoking cessation: No - Substance & Tx. History Hx Alcohol Use: No Hx Substance Use: Yes Substance Use Type: Cocaine, Heroin, Marijuana, Opiates - Substances abused Alcohol Substance route: Oral Frequency: 1-2 times per week Amount used: 2 pt. vodka, 1 six beer (16 0z) Age of first use: 12 Date of last use: 04/02/19 Cocaine Substance route: Injection Frequency: Daily Amount used: $40/day Age of first use: 22 Date of last use: 04/04/19 Heroin Substance route: Injection Frequency: Daily Amount used: 15 or 2 bundles bags/day Age of first use: 22 Date of last use: 04/05/19 Marijuana/Hashish Substance route: Smoking Frequency: 1-3 times last 30 days Amount used: 1 blunt Age of first use: 14 Date of last use: 03/15/19 Other Other (specify): methadone Substance route: Oral Frequency: 1-2 times per week Amount used: 50mg Age of first use: 29 Date of last use: 04/02/19 Family Disease History - Family Disease History Family Disease History: Diabetes: Grandparent, Father (d. 50 , murdered @ client age 12 ), Other: Father, Mother (living - healthy), Sister (two - living - healthy), Son (two ages 21 and 19, healthy) Admission Physical Exam S - Vital Signs Vital Signs: Vital Signs - 24 hr 04/05/19 04/05/19 15:19 15:36 Temperature 97.1 F L 97.1 F L Pulse Rate 57 L 57 L Respiratory 17 17 Rate Blood Pressure 118/72 118/72 - Physical General Appearance: Yes: Tremorous, Anxious. No: No Apparent Distress, Mild Distress HEENTM: Yes: Normocephalic. No: Pale Conjunctivae R, Pale Conjunctivae L, Scleral Ictenus R, Scleral Ictenus L Respiratory: Yes: Lungs Clear, No Accessory Muscle Use. No: Decreased Breath Sounds, Accessory Muscle Use Neck: Yes: Supple. No: No masses,lesions,Nodules Cardiology: Yes: Regular Rhythm, Regular Rate, S1, S2. No: Bradycardia, Tachycardia Abdominal: Yes: Non Tender, Soft Musculoskeletal: Yes: full range of Motion Extremities: Yes: Other (LUE antecubital region with subcentimeter indurated scar, nonTTP, no surrounding erythema) Neurological: Yes: Fully Oriented, Alert Breathalyzer - Breathalyzer Breathalyzer: 0 Urine Drug Screen - Test Device Lot number: [id number] Expiration date: 12/29/20 - Control Is test valid?: Yes - Results Drug screen NEGATIVE: Yes Urine drug screen results: DORCAS-Cocaine, FEN-Fentanyl, MOP-Opiates, MTD-Methadone , BZO-Benzodiazepines Inpatient Rehab Admission - Rehab Decision to Admit Inpatient rehab admission?: No
--- NOTE | 2019-04-05 17:24 | PN ---
Teaching Attending Note Name of Resident: Devan Riley ATTENDING PHYSICIAN STATEMENT I saw and evaluated the patient. I reviewed the resident's note and discussed the case with the resident. I agree with the resident's findings and plan as documented. SUBJECTIVE: pt here requesting detox from heroin use , reports relapse after d/c from this facility 01/31/19 next day , current daily use 10-15 bags heroin IVDU in [place] [facility] , needles from the exchange , denies sharing , + re-using , denies abscess, + OD x 2-3 Narcan by EMS 3 years ago . Denies recent hospital visits. Latest use 5 am , current symptoms as above . Prior MMTP Narco [place], highest dose 130 mg , left program 2/2 ongoing opiate use . cocaine - IVDU 1/2 gr latest use 3 days ago etoh - 4 days ago , 2 x /week 2 pints vodka, 2 x 6-pk beer reports anxiety if not drinking . cannabis- occasionally tobacco - 1/4 ppd denies other illicits PMHX : hep C dx 2012 no tx ( RF= IVDU ) , left shoulder bursitis 2 mo ago tx w/ abx PSHx : nose frx 1983 psych: denies , denies current Si / hi SHX : lives w/ cousin , unemployed , finances habit through odd jobs . OBJECTIVE: Vital Signs - 24 hr 04/05/19 04/05/19 15:19 15:36 Temperature 97.1 F L 97.1 F L Pulse Rate 57 L 57 L Respiratory 17 17 Rate Blood Pressure 118/72 118/72 ASSESSMENT AND PLAN: opioid dependence - Methadone detox alcohol dependence - Librium detox
[2019-04-05] MEDS ORDERED: NICOTINE POLACRILEX 4 MG GUM BUC PRN (17:31)
[2019-04-05] MEDS ORDERED: MENTHOL/PHENOL 1 EACH UD MM PRN (17:31)
[2019-04-05] MEDS ORDERED: IBUPROFEN 400 MG TABLET (FP) PO PRN (17:31)
[2019-04-05] MEDS ORDERED: BISMUTH SUBSALICYLATE 524 MG/30 ML UD PO PRN (17:31)
[2019-04-05] MEDS ORDERED: MAG HYDROX/AL HYDROX/SIMETH 30 ML UNIT-DOSE CUP PO PRN (17:31)
[2019-04-05] MEDS ORDERED: MAGNESIUM CITRATE 300 ML BOTTLE PO PRN (17:31)
[2019-04-05] MEDS ORDERED: MAGNESIUM HYDROX 2400MG/30ML ORAL SUSPENSION 30 ML CUP PO PRN (17:31)
[2019-04-05] MEDS ORDERED: ACETAMINOPHEN 325 MG TABLET (FP) PO PRN ×2 (17:31)
[2019-04-05] MEDS ORDERED: MELATONIN 5 MG TABLETS PO PRN (17:31)
[2019-04-05] MEDS ORDERED: hydrOXYzine PAMOATE 25 MG CAPSULE (FP) PO PRN (17:31)
[2019-04-05] MEDS ORDERED: cloNIDine HCL 0.1 MG TABLET PO PRN (17:31)
[2019-04-05] MEDS ORDERED: chlordiazePOXIDE HCL 10 MG CAPSULE PO PRN (17:31)
[2019-04-05] MEDS ORDERED: METHADONE HCL 10 MG TABLET (FOR DETOX USE ONLY) PO ONE (18:00)
[2019-04-05] MEDS: THIAMINE HCL 100 MG TABLET (FP) PO SCH (21:42)
[2019-04-05] MEDS: chlordiazePOXIDE HCL 25 MG CAPSULE PO SCH (21:42)
[2019-04-06] MEDS: chlordiazePOXIDE HCL 25 MG CAPSULE PO SCH ×3 (05:57→22:05)
[2019-04-06] MEDS ORDERED: METHADONE (DETOX) 20 MG, METHADONE (DETOX) 5 MG PO ONE (10:00)
[2019-04-06] MEDS ORDERED: METHADONE HCL 10 MG TABLET (FOR DETOX USE ONLY) ONE (10:17)
[2019-04-06] MEDS ORDERED: METHADONE HCL 5 MG TABLET (FOR DETOX USE ONLY) ONE (10:17)
[2019-04-06] MEDS: METHOCARBAMOL 500 MG TABLET PO PRN (10:28)
[2019-04-06] MEDS: PRENATAL VITAMINS W/ FOLIC ACID TABLET (FP) PO SCH (10:28)
[2019-04-06 11:58] LABS: HEMATOCRIT 35.9 % (35.4-49); HEMOGLOBIN 12.4 GM/dL (11.7-16.9); MCH 31.8 pg (25.7-33.7); MCHC 34.6 g/dl (32.0-35.9); MEAN CELL VOLUME 91.8 fl (80-96); MEAN PLT VOLUME 9.1 fl (7.5-11.1); PLATELET COUNT 141 K/MM3 (134-434); RBC 3.91 M/mm3 (4.00-5.60); RDW 13.1 % (11.9-15.9); WHITE BLOOD COUNT 3.3 K/mm3 (4.0-10.0)
[2019-04-06 12:17] LABS: ALBUMIN 3.2 g/dl (3.4-5.0); BILIRUBIN,TOTAL 0.8 mg/dL (0.2-1); BLOOD UREA NITROGEN 14.2 mg/dL (7-18); CALCIUM 8.9 mg/dL (8.5-10.1); CREATININE 0.9 mg/dL (0.55-1.3); POTASSIUM 3.9 mmol/L (3.5-5.1); TOT PROT 7.2 g/dl (6.4-8.2)
--- NOTE | 2019-04-06 16:19 | PN ---
[facility] CIWA - CIWA Score Nausea/Vomitin-No Nausea/No Vomiting Muscle Tremors: 3 Anxiety: 3 Agitation: 1-Slight > Activity Paroxysmal Sweats: No Perspiration Orientation: 0-Oriented Tacttile Disturbances: 1-Very Mild Itch/Numbness Auditory Disturbances: 0-None Visual Disturbances: 3-Moderate Sensitivity Headache: 0-None Present CIWA-Ar Total Score: 11 S COWS - Scale Resting Pulse: 0= [place] 80 or Below Sweatin= No chills or Flushing Restless Observation: 1= Difficult to Sit Still Pupil Size: 0= Normal to Room Light Bone or Joint Aches: 0= None Runny Nose/ Eye Tearin= None GI Upset > 30mins: 1= Stomach Cramp Tremor Observation of Outstretched Hands: 2= Slight Tremor Visible Yawning Observation: 1= 1-2x During Session Anxiety or Irritability: 2=Irritable/Anxious Goose Flesh Skin: 3=Piloerection COWS Score: 10 S Progress Note (SOAP) Subjective: Stomach Cramping, Anxious, Tremors, Fatigue. Objective: PATIENT A & O X 3, OBSERVED AMBULATING ON UNIT UNASSISTED. IN NO ACUTE DISTRESS. 04/06/19 16:21 Vital Signs Temperature 97.1 F L 04/06/19 13:40 Pulse Rate 40 L 04/06/19 13:40 Respiratory Rate 18 04/06/19 13:40 Blood Pressure 126/70 04/06/19 13:40 O2 Sat by Pulse Oximetry (%) Laboratory Tests 04/06/19 04/06/19 04/06/19 08:40 08:40 08:40 WBC 3.3 L RBC 3.91 L Hgb 12.4 Hct 35.9 MCV 91.8 MCH 31.8 MCHC 34.6 RDW 13.1 Plt Count 141 D MPV 9.1 Sodium 141 Potassium 3.9 Chloride 103 Carbon Dioxide 29 Anion Gap 9 BUN 14.2 Creatinine 0.9 Est GFR (CKD-EPI)AfAm 119.97 Est GFR (CKD-EPI)NonAf 103.51 Random Glucose 107 H Calcium 8.9 Total Bilirubin 0.8 AST 227 H ALT 287 H Alkaline Phosphatase 54 Total Protein 7.2 Albumin 3.2 L RPR Titer Nonreactive LABS NOTED. RESULTS OF DETOX ADMISSION QFT /TB TEST PENDING. 04/06/19 16:22 Assessment: 04/06/19 16:22 WITHDRAWAL SYMPTOMS. ELEVATED AST LEVEL. ELEVATED ALT LEVEL. LEUKOPENIA. 04/06/19 16:23 Plan: CONTINUE DETOX. INCREASE DAILY PO WATER INTAKE. REPEAT AST AND ALT LEVELS TO BE DRAWN TOMORROW AM FOR ELEVATED LEVELS NOTED ON DETOX ADMISSION LABORATORY ASSESSMENT.
[2019-04-06] MEDS: THIAMINE HCL 100 MG TABLET (FP) PO SCH (22:05)
[2019-04-07] MEDS: chlordiazePOXIDE 5 MG CAPSULE PO SCH ×2 (07:54→13:48)
[2019-04-07] MEDS ORDERED: METHADONE HCL 10 MG TABLET (FOR DETOX USE ONLY) PO ONE (10:00)
[2019-04-07 10:26] LABS: SGOT/AST 236 U/L (15-37); SGPT/ALT 299 U/L (13-61)
[2019-04-07] MEDS: PRENATAL VITAMINS W/ FOLIC ACID TABLET (FP) PO SCH (10:54)
[2019-04-07] MEDS: METHOCARBAMOL 500 MG TABLET PO PRN (10:54)
[2019-04-07 13:38] VITALS: BP 149/85; PULSE 58; TEMP 96.9
--- NOTE | 2019-04-07 18:39 | DS ---
[facility] Detox Discharge Summary Admission Date: 04/05/19 Discharge Date: 04/07/19 - History Present History: Alcohol Dependence, Cannabis Dependence, Cocaine Dependence, Opioid Dependence Additional Comments: PATIENT DOES NOT WISH TO REMAIN TO COMPLETE DETOX REGIMEN. RISKS OF LEAVING DETOX UNIT AGAINST MEDICAL ADVICE AND PRIOR TO COMPLETION OF DETOX REGIMEN EXPLAINED TO PATIENT. PATIENT ADVISED TO GO IMMEDIATELY TO NEAREST ER SHOULD ANY INTOLERABLE WITHDRAWAL / DETOX SYMPTOMS DEVELOP AT ANY TIME. PATIENT ADVISED TO FOLLOW-UP WITH [employer]RB[employer] DESIGN CONSULTANT WHEN POSSIBLE FOR ELEVATED ALT AND AST LEVELS NOTED ON DETOX ADMISSION AND REPEAT LABORATORY ASSESSMENTS. PATIENT VERBALIZED UNDERSTANDING OF ALL INFORMATION / RECOMMENDATIONS PRESENTED TO HIM PRIOR TO DEPARTURE FROM DETOX UNIT. COPIES OF RESULTS OF ALL LABS DRAWN WHILE ADMITTED FOR DETOX GIVEN TO PATIENT AT TIME OF DISCHARGE FROM DETOX UNIT. PATIENT LEFT DETOX UNIT IN STABLE MEDICAL CONDITION. Pertinent Past History: HTN, Hep C, Depression, P.T.S.D., Bipolar Disorder, Nicotine Dependence, Leukopenia, Elevated AST Level, Elevated ALT Level. - Physical Exam Results Vital Signs: Vital Signs Temperature 96.9 F L 04/07/19 13:37 Pulse Rate 58 L 04/07/19 13:37 Respiratory Rate 18 04/07/19 13:37 Blood Pressure 149/85 04/07/19 13:37 O2 Sat by Pulse Oximetry (%) Pertinent Admission Physical Exam Findings: WITHDRAWAL SYMPTOMS. Laboratory Tests 04/06/19 04/06/19 04/06/19 08:40 08:40 08:40 WBC 3.3 L RBC 3.91 L Hgb 12.4 Hct 35.9 MCV 91.8 MCH 31.8 MCHC 34.6 RDW 13.1 Plt Count 141 D MPV 9.1 Sodium 141 Potassium 3.9 Chloride 103 Carbon Dioxide 29 Anion Gap 9 BUN 14.2 Creatinine 0.9 Est GFR (CKD-EPI)AfAm 119.97 Est GFR (CKD-EPI)NonAf 103.51 Random Glucose 107 H Calcium 8.9 Total Bilirubin 0.8 AST 227 H ALT 287 H Alkaline Phosphatase 54 Total Protein 7.2 Albumin 3.2 L RPR Titer Nonreactive 04/07/19 08:00 WBC RBC Hgb Hct MCV MCH MCHC RDW Plt Count MPV Sodium Potassium Chloride Carbon Dioxide Anion Gap BUN Creatinine Est GFR (CKD-EPI)AfAm Est GFR (CKD-EPI)NonAf Random Glucose Calcium Total Bilirubin AST 236 H ALT 299 H Alkaline Phosphatase Total Protein Albumin RPR Titer LABS NOTED. - Medication Discharge Medications: Ambulatory Orders NK [No Known Home Medication] 04/05/19 - Diagnosis (1) Opioid dependence with withdrawal Status: Acute (2) Alcohol dependence with uncomplicated withdrawal Status: Chronic (3) Cocaine dependence Status: Chronic (4) Marijuana dependence Status: Chronic (5) Nicotine dependence Status: Chronic Qualifiers: Nicotine product type: cigarettes Substance use status: uncomplicated Qualified Code(s): F17.210 - Nicotine dependence, cigarettes, uncomplicated (6) Leukopenia Status: Acute Qualifiers: Leukopenia type: unspecified Qualified Code(s): D72.819 - Decreased white blood cell count, unspecified (7) Elevated alanine aminotransferase (ALT) level Status: Acute (8) Elevated aspartate aminotransferase level Status: Acute - AMA Did Patient Leave Against Medical Advice: Yes (PATIENT DID NOT WISH TO REMAIN TO COMPLETE DETOX REGIMEN.) S CIWA - CIWA Score Nausea/Vomitin-No Nausea/No Vomiting Muscle Tremors: 3 Anxiety: 3 Agitation: 2 Paroxysmal Sweats: 2 Orientation: 0-Oriented Tacttile Disturbances: 1-Very Mild Itch/Numbness Auditory Disturbances: 0-None Visual Disturbances: 1-Very Mild Sensitivity Headache: 0-None Present CIWA-Ar Total Score: 12 S COWS - Scale Resting Pulse: 0= IA 80 or Below Sweatin= Chills/Flushing Restless Observation: 1= Difficult to Sit Still Pupil Size: 0= Normal to Room Light Bone or Joint Aches: 2= Severe Diffuse Aches Runny Nose/ Eye Tearin= None GI Upset > 30mins: 0= None Tremor Observation of Outstretched Hands: 2= Slight Tremor Visible Yawning Observation: 1= 1-2x During Session Anxiety or Irritability: 2=Irritable/Anxious Goose Flesh Skin: 0=Smooth Skin COWS Score: 9
[2019-04-08] MEDS ORDERED: chlordiazePOXIDE HCL 10 MG CAPSULE PO PRN
[2019-04-08] MEDS ORDERED: chlordiazePOXIDE HCL 10 MG CAPSULE PO SCH (05:00)
[2019-04-08] MEDS ORDERED: METHADONE (DETOX) 10 MG, METHADONE (DETOX) 5 MG PO ONE (10:00)
[2019-04-09] MEDS ORDERED: chlordiazePOXIDE HCL 10 MG CAPSULE PO ONE (05:00)
[2019-04-09] MEDS ORDERED: METHADONE HCL 10 MG TABLET (FOR DETOX USE ONLY) PO ONE (10:00)
[2019-04-10] MEDS ORDERED: METHADONE HCL 5 MG TABLET (FOR DETOX USE ONLY) PO ONE (06:00)
== END 2019-04-07 14:12 | disposition left against medical advice (07) | DRG 770 ==
LOC: YASAS 12:26 → Y3N 17:41
PROVIDERS: ADMIT Surgery; ATTEND Surgery
PROC: HZ2ZZZZ Detoxification Services for Substance Abuse Treatment (ICD-10-PCS; principal; 2019-04-05)
DX: F11.23 Opioid dependence with withdrawal (principal); F10.230 Alcohol dependence with withdrawal, uncomplicated; F14.20 Cocaine dependence, uncomplicated; F12.20 Cannabis dependence, uncomplicated; F17.210 Nicotine dependence, cigarettes, uncomplicated; D72.819 Decreased white blood cell count, unspecified; R74.0 Nonspecific elevation of levels of transaminase and lactic acid dehydrogenase [LDH]; Z91.013 Allergy to seafood
CPT/HCPCS: 36415; 80053; 84450; 84460; 85027; 86480; 86593

== ENCOUNTER 2020-10-30 09:37 | Inpatient (IN) | payer OTHER ==
[2020-10-30 10:32] VITALS: BMI 33.7
[2020-10-30] MEDS ORDERED: MENTHOL/PHENOL 1 EACH UD MM PRN (10:53)
[2020-10-30] MEDS ORDERED: BISMUTH SUBSALICYLATE 524 MG/30 ML UD PO PRN (10:53)
[2020-10-30] MEDS ORDERED: MAGNESIUM CITRATE 300 ML BOTTLE PO PRN (10:53)
[2020-10-30] MEDS ORDERED: ACETAMINOPHEN 325 MG TABLET (FP) PO PRN ×2 (10:53)
[2020-10-30] MEDS ORDERED: IBUPROFEN 400 MG TABLET (FP) PO PRN (10:53)
[2020-10-30] MEDS ORDERED: LORazepam 1 MG TABLET PO PRN (10:53)
[2020-10-30] MEDS ORDERED: MAG HYDROX/AL HYDROX/SIMETH 30 ML UNIT-DOSE CUP PO PRN (10:53)
[2020-10-30] MEDS ORDERED: ONDANSETRON *ODT* 4 MG TABLET SL PRN (10:53)
[2020-10-30] MEDS ORDERED: MAGNESIUM HYDROX 2400MG/30ML ORAL SUSPENSION 30 ML CUP PO PRN (10:53)
[2020-10-30] MEDS ORDERED: NICOTINE POLACRILEX 2 MG GUM BUC PRN (10:53)
[2020-10-30] MEDS ORDERED: METHOCARBAMOL 500 MG TABLET PO PRN (10:53)
[2020-10-30] MEDS: NICOTINE 7 MG/24 HOURS TOPICAL PATCH TD SCH (11:42)
[2020-10-30] MEDS ORDERED: METHADONE HCL 10 MG TABLET PO SCH ×2 (12:00)
[2020-10-30] MEDS ORDERED: FLU VACCINE (FLULAVAL) PF 60 MCG/0.5 ML SYRINGE 2020-2021 IM ONE (12:00)
[2020-10-30] MEDS ORDERED: METHADONE HCL 10 MG TABLET ONE (12:19)
[2020-10-30] MEDS ORDERED: METHADONE HCL 40 MG DISPERSABLE TABLET ONE (12:22)
[2020-10-30] MEDS: METHADONE 80 MG, METHADONE 10 MG PO SCH (12:26)
[2020-10-30] MEDS: LORazepam 2 MG TABLET PO SCH ×3 (12:27→22:06)
[2020-10-30] MEDS: PRENATAL VITAMINS W/ FOLIC ACID TABLET (FP) PO SCH (12:28)
[2020-10-30] MEDS: VITAMINS A AND D TOPICAL OINTMENT 60 GM TUBE TP SCH ×2 (13:02→18:06)
[2020-10-30] MEDS: hydrOXYzine PAMOATE 25 MG CAPSULE (FP) PO SCH ×3 (13:02→22:06)
[2020-10-30 15:26] LABS: POTASSIUM 3.7 mmol/L (3.5-5.1)
[2020-10-30 15:30] LABS: HEMATOCRIT 36.7 % (35.4-49); MCH 32.3 pg (25.7-33.7); MCHC 35.5 g/dl (32.0-35.9); MEAN CELL VOLUME 90.9 fl (80-96); MEAN PLT VOLUME 9.3 fl (7.5-11.1); PLATELET COUNT 176 K/MM3 (134-434); RBC 4.04 M/mm3 (4.00-5.60); RDW 13.1 % (11.9-15.9); WHITE BLOOD COUNT 5.1 K/mm3 (4.0-10.0)
[2020-10-30 15:31] LABS: ALBUMIN 3.6 g/dl (3.4-5.0); BLOOD UREA NITROGEN 22.8 mg/dL (7-18); CALCIUM 8.8 mg/dL (8.5-10.1)
[2020-10-30 15:35] LABS: CREATININE 0.9 mg/dL (0.55-1.3)
[2020-10-30 15:36] LABS: BILIRUBIN,TOTAL 0.4 mg/dL (0.2-1); TOT PROT 7.8 g/dl (6.4-8.2)
[2020-10-30] MEDS: THIAMINE HCL 100 MG TABLET (FP) PO SCH (22:06)
[2020-10-30] MEDS: MELATONIN 5 MG TABLETS PO SCH (22:06)
[2020-10-31] MEDS: VITAMINS A AND D TOPICAL OINTMENT 60 GM TUBE TP SCH ×5 (00:10→23:18)
[2020-10-31] MEDS ORDERED: METHADONE HCL 10 MG TABLET ONE (05:03)
[2020-10-31] MEDS ORDERED: METHADONE HCL 40 MG DISPERSABLE TABLET ONE (05:06)
[2020-10-31] MEDS: hydrOXYzine PAMOATE 25 MG CAPSULE (FP) PO SCH ×5 (05:49→23:18)
[2020-10-31] MEDS: LORazepam 2 MG TABLET PO SCH ×4 (05:50→22:10)
[2020-10-31] MEDS: METHADONE 80 MG, METHADONE 10 MG PO SCH (05:52)
[2020-10-31] MEDS: PRENATAL VITAMINS W/ FOLIC ACID TABLET (FP) PO SCH (10:15)
[2020-10-31] MEDS: NICOTINE 7 MG/24 HOURS TOPICAL PATCH TD SCH (10:15)
[2020-10-31] MEDS ORDERED: AMMONIUM LACTATE 12% LOTION 225 GM BOTTLE TP PRN (11:07)
[2020-10-31] MEDS ORDERED: FLU VACCINE (FLULAVAL) PF 60 MCG/0.5 ML SYRINGE 2020-2021 IM ONE (12:00)
[2020-10-31] MEDS: THIAMINE HCL 100 MG TABLET (FP) PO SCH (22:10)
[2020-10-31] MEDS: MELATONIN 5 MG TABLETS PO SCH (22:13)
[2020-11-01] MEDS ORDERED: METHADONE HCL 10 MG TABLET ONE (04:25)
[2020-11-01] MEDS ORDERED: METHADONE HCL 40 MG DISPERSABLE TABLET ONE (04:26)
[2020-11-01] MEDS: VITAMINS A AND D TOPICAL OINTMENT 60 GM TUBE TP SCH ×3 (05:42→19:22)
[2020-11-01] MEDS: METHADONE 80 MG, METHADONE 10 MG PO SCH (05:43)
[2020-11-01] MEDS: hydrOXYzine PAMOATE 25 MG CAPSULE (FP) PO SCH ×5 (05:43→22:58)
[2020-11-01] MEDS: LORazepam 1 MG TABLET PO SCH ×4 (05:44→22:10)
[2020-11-01] MEDS: PRENATAL VITAMINS W/ FOLIC ACID TABLET (FP) PO SCH (10:27)
[2020-11-01] MEDS: NICOTINE 7 MG/24 HOURS TOPICAL PATCH TD SCH (10:29)
[2020-11-01] MEDS: MELATONIN 5 MG TABLETS PO SCH (22:09)
[2020-11-01] MEDS: THIAMINE HCL 100 MG TABLET (FP) PO SCH (22:09)
[2020-11-02] MEDS ORDERED: LORazepam 0.5 MG TABLET PO PRN
[2020-11-02] MEDS: VITAMINS A AND D TOPICAL OINTMENT 60 GM TUBE TP SCH ×3 (01:44→12:00)
[2020-11-02] MEDS ORDERED: METHADONE HCL 40 MG DISPERSABLE TABLET ONE (03:56)
[2020-11-02] MEDS ORDERED: METHADONE HCL 10 MG TABLET ONE (03:56)
[2020-11-02] MEDS: METHADONE 80 MG, METHADONE 10 MG PO SCH (05:25)
[2020-11-02] MEDS: hydrOXYzine PAMOATE 25 MG CAPSULE (FP) PO SCH ×3 (05:25→13:44)
[2020-11-02] MEDS: LORazepam 0.5 MG TABLET PO SCH ×2 (05:26→10:37)
[2020-11-02 09:43] VITALS: TEMP 98
[2020-11-02] MEDS ORDERED: amLODIPine BESYLATE 5 MG TABLET (FP) PO SCH (10:30)
[2020-11-02] MEDS ORDERED: amLODIPine BESYLATE 10 MG TABLET (FP) PO SCH (10:30)
[2020-11-02] MEDS: PRENATAL VITAMINS W/ FOLIC ACID TABLET (FP) PO SCH (10:36)
[2020-11-02] MEDS: NICOTINE 7 MG/24 HOURS TOPICAL PATCH TD SCH (10:36)
[2020-11-02 13:19] VITALS: BP 152/78; PULSE 69
[2020-11-03] MEDS ORDERED: LORazepam 0.5 MG TABLET PO ONE (05:00)
== END 2020-11-02 15:53 | disposition home or self-care (01) | DRG 773 ==
LOC: YASAS 09:37 → Y6N 11:02
PROVIDERS: ADMIT Allergy & Immunology; ATTEND Allergy & Immunology
PROC: HZ2ZZZZ Detoxification Services for Substance Abuse Treatment (ICD-10-PCS; principal; 2020-10-30)
DX: F10.230 Alcohol dependence with withdrawal, uncomplicated (principal); F11.20 Opioid dependence, uncomplicated; F14.20 Cocaine dependence, uncomplicated; F17.211 Nicotine dependence, cigarettes, in remission; I10 Essential (primary) hypertension; B18.2 Chronic viral hepatitis C; R74.9 Abnormal serum enzyme level, unspecified; R79.89 Other specified abnormal findings of blood chemistry; Z56.0 Unemployment, unspecified; Z59.0 Homelessness; Z91.013 Allergy to seafood
CPT/HCPCS: 36415; 80053; 85027; 86780; C9803; U0003; U0005